=== PATIENT | female | born 1965 | race Caucasian/White ===

== ENCOUNTER 2021-06-29 08:54 | Outpatient (CLI) | payer OTHER, SELFPAY ==
--- NOTE | ~2021-06-29 | XR_ITS ---
EXAMINATION: XR knee RT min 4V DATE: 06/29/2021 09:23 INDICATION: Right knee pain. TECHNIQUE: 4 views of right knee were obtained. COMPARISON: Right knee radiographs 03/19/2019 FINDINGS: There is varus angulation at the knee. There is an old displaced fracture of the medial asp ect of medial tibial plateau with nonunion. There is severe osteoarthritis of medial and patellofemor al compartments and mild osteoarthritis of lateral compartment. No knee joint effusion. IMPRESSION: 1. Severe right knee osteoarthritis. 2. 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 Reviewed, dictated and finalized at location A. IMPRESSION: 1. Severe right knee osteoarthritis. 2. Old displaced fracture of the medial aspect of medial tibial plateau with no nunion.
--- NOTE | ~2021-06-29 | XR_ITS ---
EXAMINATION: XR knee LT min 4V DATE: 06/29/2021 09:23 INDICATION: Left knee pain. TECHNIQUE: 4 views of left knee were obtained. COMPARISON: Left knee radiographs 10/18/2019 FINDINGS: There is varus angulation at the knee. No fracture. There is severe osteoarthritis of media l, lateral, and patellofemoral compartments. There are loose bodies in the knee joint and in a Baez' s cyst. No knee joint effusion. IMPRESSION: 1. Severe left knee osteoarthritis. 2. Loose bodies in the left knee joint and a Baez's cyst. Reviewed, dictated and finalized at location A.
== END 2021-06-29 08:55 | disposition home or self-care (01) ==
LOC: CHSIMG 08:57
PROVIDERS: PCP Nurse Practitioner; Visit Provider Orthopaedic Surgery
DX: M25.561 Pain in right knee (principal); M25.562 Pain in left knee; M17.0 Bilateral primary osteoarthritis of knee
CPT/HCPCS: 73564

== ENCOUNTER 2021-10-06 08:11 | Outpatient (CLI) | payer OTHER, SELFPAY ==
[2021-10-06 12:11] LABS: Add Urine Microscopic? YES; Appearance Urine Clear (Clear); Bilirubin Urine Negative (Negative); Blood Urine Negative (Negative); Color Urine Yellow (Yellow); Glucose Urine UA Negative (Negative); Ketones Urine Negative (Negative); Leukocyte Esterase Ur Negative LEU/UL (Negative); Mucus Urine Rare /lpf; Nitrate Urine Negative (Negative); Protein Urine Negative (Negative); RBC Urine 0-2 /hpf (0-2); Specific Grav Ur 1.012 (1.001-1.035); Squamous Epithelial Cell Urine Rare /hpf (Few); Urobilinogen Urine Negative mg/dL (<2.0); WBC Urine 0-3 /hpf
[2021-10-06 12:17] LABS: Partial Thromboplastin Time 28.4 SECONDS (22.3-36.8); Prothrombin Time 13.5 Seconds (11.1-14.7)
[2021-10-06 12:22] LABS: Urine Cotinine NEGATIVE
== END 2021-10-06 08:12 | disposition home or self-care (01) ==
PROVIDERS: PCP Nurse Practitioner; Visit Provider Orthopaedic Surgery
DX: Z01.812 Encounter for preprocedural laboratory examination (principal); M17.12 Unilateral primary osteoarthritis, left knee; Z51.81 Encounter for therapeutic drug level monitoring; Z79.899 Other long term (current) drug therapy
CPT/HCPCS: 80307; 81001; 85610; 85730; 86850; 86900; 86901

== ENCOUNTER 2021-10-12 00:23 | Day surgery (SDC) | payer OTHER, SELFPAY ==
[2021-10-06 10:22] VITALS: BMI 39.9
[2021-10-06 10:39] VITALS: BP 152/76; PULSE 52; RESP 16; TEMP 36.7; O2SAT 99
--- NOTE | 2021-10-06 10:49 | PC.NURSE ---
Report to the Outpatient Waiting Room, entrance under the green pavilion located off [facility], at time __9:00AM____ on date ___10/12/21____. OR Time: ___11:00AM . - You will be asked a series of questions to screen for COVID 19 for your protection. - A mask is required within the hospital. - No visitors are allowed at this time. Preoperative COVID Testing Requirements: No COVID Test needed if: (proof is required; if not received patient will have Rapid Test prior to entry) - Patient has received COVID Vaccine at least 14 days prior to procedure date or - Patient has positive COVID test result within last 90 days of surgery date. COVID Test needed if above criteria is not met If not COVID vaccinated a COVID test must be conducted within 72 hours of surgery and patient is asked to isolate self from time of testing until procedure. You will go to the [email or web address] Testing Site for your COVID testing. The [email or web address] site is located at the corner of [address] [facility]. You will only be called if COVID results are positive and your surgeon may reschedule your elective surgery date. Patients may have clear liquids (water, carbonated beverages, clear teas, apple juice) until 3 hours prior to surgery with a maximum of 20 ounces. - No food from midnight until time of surgery - Infants may have breast milk until 4 hours before surgery, formula 6 hours prior to surgery. - Children will be allowed to drink immediately following surgery. If applicable, please bring a bottle or sippy cup to assist with drinking. Juice, water, soda, and popsicles are readily available. For infants on formula, please bring formula the day of surgery. Pacifiers are allowed. Take the following medications with a SIP of water the morning of surgery: ____AMLODIPINE, FLUOXETINE Medications to discontinue per physician ALL VITAMINS/SUPPLEMENTS 3 DAYS PRE-OP Date to take last dose 2/4/22 Please no make-up, nail malay, hairspray, perfume, deodorant, or body powder the day of surgery. No jewelry (including any body piercings) or valuables the day of surgery, leave them at home. Please take a shower or bath the night before, or the morning of, surgery with an antibacterial soap. Wear comfortable, loose fitting clothing. Children are encouraged to wear pajamas. - Jewelry must be removed prior to entering the operating room. Rings and piercings that are not removed may be cut off. - The hospital will not accept responsibility for valuables. - Please leave all valuables, including medications, at home the day of surgery. If you are going home after surgery, a licensed entry level truck driver must drive you home. - NO public transportation without another adult. - We recommend that an adult stay with you for 24 hours following discharge. - We also recommend that you do not drive, make important decision, drink alcoholic beverages, or take any drugs that were not prescribed by your health care provider for at least 24 hours after your discharge time. For Pediatric surgeries, we recommend two adults accompany the child home (only one inside the building at this time). Follow any additional instructions given to you from your surgeon. Telephone instructions given to __PATIENT and asked if any additional questions and then verbalized understanding. Patient advised to call surgeon office or pre surgery nurse liaison [phone] if any additional questions.
[2021-10-12] VITALS (8 sets, daily range): BP systolic 133–159; BP diastolic 54–98; PULSE 55–76; RESP 10–20; TEMP 36.3–36.4; O2SAT 96–100
--- NOTE | ~2021-10-12 | XR_ITS ---
XR knee LT 2V DATE: 10/12/2021 13:54 INDICATION: Postoperative examination TECHNIQUE: Portable AP and crosstable lateral views of left knee COMPARISON: 06/29/2021 left knee FINDINGS: There are jarrett along the anterior aspect of the knee. There is expected postoperative morgan bcutaneous emphysema. Status post left knee arthroplasty without patellar resurfacing. No fracture or dislocation, periosteal reaction or bone destruction. IMPRESSION: Left knee arthroplasty Reviewed, dictated and finalized at location A. CELL SEALER IMPRESSION: Left knee arthroplasty
--- NOTE | 2021-10-12 07:22 | WPDHPUPDATE1 ---
History and Physical Update Update Date/Time: 10/12/21 07:22 History and Physical has been reviewed, including an updated exam of the patient. There are NO changes in the patient's condition. Risks, benefits, and alternatives have been discussed and questions answered. Patient agrees to proceed with procedure.
--- NOTE | 2021-10-12 08:37 | WPDANESEPPF ---
Anes - Initial Pre Proc Eval Procedure: Operation Date: 10/12/21 11:00 Proposed Procedures p Left Total Knee Arthroplasty - Michael Lindsey MD Date/Time: 10/12/21 08:37 Surgeon: Michael Lindsey MD Pre Op Diagnosis: left knee djd Patient Data Age: 56 Gender: F Height: 1.56 m Weight: 97.3 kg Last Vital Signs Temp 36.7 C 10/06/21 10:39 Pulse 52 L 10/06/21 10:39 Resp 16 10/06/21 10:39 BP 152/76 H 10/06/21 10:39 Pulse Ox 99 10/06/21 10:39 Allergies Allergy/AdvReac Type Severity Reaction Status Date / Time aspirin AdvReac Unknown Other Verified 10/06/21 10:28 NSAIDS (Non-Steroidal AdvReac Unknown Other Verified 10/06/21 10:28 Anti-Inflamma Home Medications Medication Instructions Recorded Confirmed Type amlodipine 5 mg PO QAM 10/06/21 10/12/21 History atorvastatin 20 mg PO QAM 10/06/21 10/12/21 History calcium citrate 500 mg PO TID 10/06/21 10/12/21 History cyanocobalamin (vitamin B-12) 1,000 mcg PO WEEKLY 10/06/21 10/12/21 History ferrous [id number]-pocwezz conc 1 cap PO 5XW 10/06/21 10/12/21 History [Iron Complex/C/B12] fluoxetine 60 mg PO QAM 10/06/21 10/12/21 History furosemide 20 mg PO QAM 10/06/21 10/12/21 History lisinopril 10 mg PO QAM 10/06/21 10/12/21 History multivitamin [Multiple Vitamin] 1 tablet PO QID 10/06/21 10/12/21 History omeprazole [Prilosec] 20 mg PO QAM 10/06/21 10/12/21 History Patient hx anesthesia problems: post op nausea/vomiting Family hx anesthesia problems: none Results Review: All pre-operative results and documents have been reviewed as part of the pre-operative evaluation. [facility] Past Medical History Medical History (Updated 10/12/21 @ 08:38 by Eleazar Lozano DO) Anxiety Bilateral knee pain BMI greater than 40 DJD (degenerative joint disease) of knee Hiatal hernia Hyperlipidemia Hypertension Left knee DJD JAZMINE (obstructive sleep apnea) PONV (postoperative nausea and vomiting) Pre-op testing Right knee DJD Surgical History Surgical History (Updated 10/12/21 @ 08:38 by Eleazar Lozano DO) Gastric bypass status for obesity 01/2021 History of hysterectomy Family History Family History Other Family history of malignant neoplasm Social History Social History Smoking status: Never smoker Alcohol intake: former Alcohol use details: STOPPED DRINKING 35 YEARS AGO Substance use: never Living arrangements: with family Additional living arrangements comments: [place] Gender identity (if verbalized by the patient): Female Spiritual care concerns: No Anes - Eval Final PreProcedure Day of Procedure 10/12/21 08:37 Patient weight: obese Heart: regular rate and rhythm Lungs: clear to auscultation and normal air movement Airway: Mallampati scale class II Neurological: alert and oriented Last oral intake: >/= 8 hours ASA classification: III Emergent: no Anesthetic plan: proceed Anesthesia type and monitoring: general LMA and standard monitoring Results Review: All pre-operative results and documents have been reviewed as part of the pre-operative evaluation. Informed Consent: The patient's anesthetic plan and its attendant risks and benefits were discussed with the patient/family/POA. Questions were solicited and answers provided to the satisfaction of the patient/family/POA.
--- NOTE | 2021-10-12 08:41 | WPDANESPNB ---
Anes - Peripheral Nerve Block Date/Time: 10/12/21 08:41 I have discussed with the patient/family/POA the placement of a peripheral nerve block for post-operative pain management, including associated risks, benefits, complications, and side effects. Alternative methods of post-operative analgesia were detailed. Questions were solicited and answers provided to the satisfaction of the patient/family/POA. Time-Out: A pre-procedural Time-Out was completed immediately before starting the procedure and confirmed: Patient Identification, Site, Procedure, Patient Position and the Availability of Requisite Equipment. Clinical Indications: Acute post-operative pain management requested by the operative surgeon. Nerve Block Insertion Note Anes-nerve block: adductor canal left Patient position: supine Skin prep: chlorhexidine Needle: 22 gauge, stimulating, insulated echogenic needle. Needle length: 80 mm Technique: ultrasound Injectate: bupivacaine 0.5% with epi 5 mcg/ml (30cc - no epi) Observations: tolerated well Complications: none Procedure start time:: 1037 Procedure end time:: 1040
[2021-10-12] MEDS: ACETAMINOPHEN 500 MG TABLET 1000 MG PO (09:10)
[2021-10-12] MEDS: LACTATED RINGERS 1,000 ML 30 ML IV CONT ×3 (09:10→14:14)
[2021-10-12] MEDS: TRANEXAMIC ACID 1,000MG/ISO100 1,000 MG/100 ML BAG 200 MG IVPB (09:10)
[2021-10-12] MEDS: SCOPOLAMINE 1.5 MG PATCH TRANSDERM (09:36)
[2021-10-12] MEDS: ceFAZolin 2 GM/D5W 50 ML 2 GM/50 ML BAG IVPB ×2 (10:47→17:39)
[2021-10-12] MEDS: GENTAMICIN BONE CEMENT REFOBACIN 1 EACH TOPICAL (11:37)
[2021-10-12] MEDS: TRANEXAMIC ACID 1,000 MG/10 ML AMPUL 1000 MG IV PUSH (12:57)
[2021-10-12] MEDS: fentaNYL CITRATE INJ (*CRX) 100 MCG/2 ML VIAL 25 MCG IV PUSH ×4 (13:50→14:00)
--- NOTE | 2021-10-12 14:10 | W.PM.PROC2 ---
Procedure Note - Detailed Date of Procedure 10/12/21 Pre-op Diagnosis left knee djd Post-op Diagnosis same Procedure Performed L TKA Surgeon Michael Lindsey MD Anesthesia general Description of Procedure THE LEFT KNEE WAS PREPPED AND DRAPED IN THE STERILE FASHION. THERE WAS A 20 DEGREE FLEXION CONTRACTURE. A MIDLINE SKIN INCISION WAS MADE. A MEDIAL PARAPATELLAR ARTHROTOMY WAS MADE. THE PATELLA WAS EVERTED. THERE WAS TRICOMPARTMENT DJD. THERE WAS MINIMAL PATELLA DJD. AN INTRAMEDULLARY RACHEL WAS PLACED IN THE FEMUR. A DISTAL FEMORAL CUT WAS MADE IN 5 DEGREES OF VALGUS REMOVING APPROXIMATELY 9 MM OF BONE FROM THE DISTAL FEMUR. THE FEMUR WAS SIZED TO 62.5. A 62.5 FEMORAL CUTTING BLOCK WAS PLACED IN 3 DEGREES OF EXTERNAL ROTATION AND IN ALIGNMENT WITH JOY'S LINE AND THE TRANSEPICONDYLAR AXIS. ANTERIOR POSTERIOR AND CHAMFER CUTS WERE MADE. THE CUTS WERE EXCELLENT. NEXT AN INTRAMEDULLARY CUTTING GUIDE WAS PLACED IN THE TIBIA. A TRANS TIBIAL CUT WAS MADE ALONG THE LONG AXIS OF THE TIBIA. APPROXIMATELY 10 MM OF BONE WAS REMOVED FROM THE HIGH SIDE OF THE TIBIA. THE TIBIA WAS THEN PLANED TO A SMOOTH SURFACE. POSTERIOR FEMORAL OSTEOPHYTES WERE REMOVED FROM THE FEMORAL CONDYLES. A 71 TIBIAL TRIAL WAS PLACED IN ALIGNMENT WITH THE 1/3 MEDIAL ASPECT OF THE TIBIAL TUBERCLE. THEN A 65 FEMORAL TRIAL COMPONENT WAS PLACED. BOTH HAD EXCELLENT FITS. EVENTUALLY A 16 MM POLYETHYLENE TRIAL COMPONENT WAS PLACED. THE KNEE WAS TAKEN THROUGH A RANGE OF MOTION. THE KNEE CAME OUT TO FULL EXTENSION. THERE WAS NO ABNORMAL TILT TO THE PATELLA. THERE WAS GOOD A/P AND VARUS/VALGUS STABILITY. THERE WAS NO EXCESSIVE ROLL BACK WITH FLEXION. THE TRIAL COMPONENTS WERE REMOVED. THEN A 62.5 FEMORAL COMPONENT AND 71 TIBIAL COMPONENT WITH A 16 POLYETHYLENE COMPONENT WERE CEMENTED INTO PLACE. ONCE THE CEMENT WAS HARD THE KNEE WAS TAKEN THROUGH A ROM AGAIN AND FOUND TO BE STABLE WITH NO PATELLA TILT NO EXCESSIVE ROLL BACK WITH FLEXION AND GOOD STABILITY WITH COMPLETE AND FULL EXTENSION. THE KNEE WAS IRRIGATED WITH STERILE BETADINE AND WATER FOR ABOUT 3 MINUTES. THE BLEEDERS WERE CAUTERIZED. THE ARTHROTOMY WAS REPAIRED WITH NUMBER 1 VICRYL. THE SUB CUTANEOUS LAYER WITH 2-0 VICRYL AND THE SKIN WITH SACHA. THE WOUND WAS WASHED AND A STERILE DRESSING WAS APPLIED. PATIENT WAS EXTUBATED. Estimated Blood Loss -200.0 Pathology none sent Complications No immediate complications Condition stable Disposition PACU
[2021-10-12] MEDS: ONDANSETRON INJ 4 MG/2 ML VIAL IV PUSH (14:25)
[2021-10-12] MEDS: HYDROmorphone HCL INJ (*CRX) 1 MG/ML SYR 0.25 MG IV PUSH ×3 (14:30→14:50)
--- NOTE | 2021-10-12 14:47 | SUR.PHASEI ---
RESTFUL. FLACC 0. RATES PAIN AT 7 CONSISTENTLY WHEN AWAKE BUT EASILY RETURNS TO SLEEP AND DOZES FREQ. VSS.
--- NOTE | 2021-10-12 16:27 | PC.NURSE ---
This patient, Alexandrea Wolfe, was admitted to [facility] Surgery-3. Patient oriented to hospital policies and general routines including ID bracelet, bed and alarms, visiting hours, pain management, procedures, bathroom and other care routines, personal items, smoking policy, room service/diet, and visiting hours. Information on how to activate the Rapid Response Team has been discussed. Patient are encouraged to report perceived risks to care and to ask questions if they do not understand what they are told or what they should do.
[2021-10-12] MEDS: SODIUM CHLORIDE 0.9% IV 1,000 ML 125 ML IV CONT (16:45)
[2021-10-12] MEDS: oxyCODONE/ACETAMINOPHEN (*CRX) 5-325 MG TABLET 1 TABLET PO (17:27)
[2021-10-12] MEDS: MULTIVITAMINS THERAPEUTIC TAB (*BKC) 1 TABLET PO ×2 (17:28→21:21)
[2021-10-12] MEDS: SENNA/DOCUSATE SODIUM TABLET 2 TAB PO (17:28)
--- NOTE | 2021-10-12 19:12 | PC.NURSE ---
REPORT GIVEN TO STEPHANIE MEDINA.
[2021-10-12] MEDS: CYANOCOBALAMIN 1,000 MCG TABLET 1000 MCG PO (21:21)
[2021-10-12] MEDS: oxyCODONE/ACETAMINOPHEN (*CRX) 5-325 MG TABLET 2 TABLET PO (23:08)
[2021-10-13] VITALS (7 sets, daily range): BP systolic 121–168; BP diastolic 60–94; PULSE 62–88; RESP 16–20; TEMP 37.1–37.5; O2SAT 95–99
[2021-10-13] MEDS: ceFAZolin 2 GM/D5W 50 ML 2 GM/50 ML BAG IVPB ×2 (02:22→09:57)
[2021-10-13 04:39] LABS: Basophils Percent Auto 0.2 % (0.2-1.2); Hematocrit 33.8 % (37.0-47.0); Hemoglobin 10.9 g/dL (12.0-15.0); Immature Granulocyte Absolute 0.03 K/mm3 (0.00-0.031); Immature Granulocyte Percent A 0.3 % (0-0.5); Lymphocytes Absolute Auto 1.17 K/mm3 (0.9-3.2); Lymphocytes Percent Auto 12.8 % (18.3-44.2); Mean Corpuscular HGB Conc 32.2 g/dl (32-36); Mean Corpuscular Hemoglobin 29.6 pg (26-34); Mean Corpuscular Volume 91.8 fl (80-100); Mean Platelet Volume 10.7 fl (7.4-10.4); Monocytes Percent Auto 11.3 % (2.6-8.5); Neutrophils Absolute Auto 6.9 K/mm3 (1.3-6.7); Neutrophils Percent Auto 75.4 % (45.5-73.1); Platelet Count Result 184 k/mm3 (150-375); Red Blood Count 3.68 M/mm3 (4.2-5.4); Red Cell Distribution Width 14.3 % (11.5-14.5); White Blood Count 9.1 K/mm3 (4.5-10.0)
[2021-10-13 04:49] LABS: Anion Gap 8 mmol/L (8-16); Blood Urea Nitrogen 9 mg/dL (7-17); Calcium 9.3 mg/dL (8.4-10.2); Carbon Dioxide 26 mmol/L (22-30); Chloride 103 mmol/L (98-107); Estimated CRCL calculation 95 ml/min; Estimated Glomerular Filt Rate > 60; Glucose 143 mg/dL (65-110); Potassium 4.4 mmol/L (3.4-5.0); Sodium 137 mmol/L (137-145)
[2021-10-13] MEDS: oxyCODONE/ACETAMINOPHEN (*CRX) 5-325 MG TABLET 2 TABLET PO (05:36)
--- NOTE | 2021-10-13 08:02 | PM.PNORT ---
Progress Note: A&P Additional Plan POD 1 DOING WELL. OK TO DC HOME. F/U IN 3 WEEKS Subjective Subjective Date/Time Seen: 10/13/21 08:02 POD 1 DOING WELL. PAIN CONTROLLED, NO CALF PAIN Exam Extrem: Other: VSS AFEBRILE DRESSING DRY NV INTACT NEG HOMANS SIGN CALF SOFT Objective Data Vital Signs Vital Signs: Vital Signs - 24 hr 10/12/21 08:48 10/12/21 13:44 10/12/21 14:00 Temperature 36.3 C L 36.4 C Pulse Rate 55 L 73 70 Respiratory Rate 18 13 16 Blood Pressure 145/76 H 159/98 H 147/61 H Pulse Oximetry 100 100 100 10/12/21 14:15 10/12/21 14:30 10/12/21 14:46 Temperature Pulse Rate 68 67 63 Respiratory Rate 14 10 L 12 Blood Pressure 133/54 L 145/66 H 137/59 L Pulse Oximetry 97 96 99 10/12/21 15:00 10/12/21 20:00 10/13/21 00:05 Temperature Pulse Rate 70 76 88 Respiratory Rate 20 20 20 Blood Pressure 140/68 153/70 H 152/70 H Pulse Oximetry 97 98 10/13/21 00:50 10/13/21 02:00 10/13/21 04:00 Temperature 37.2 C 37.5 C Pulse Rate 62 66 Respiratory Rate 20 20 18 Blood Pressure 168/94 H 121/60 Pulse Oximetry 98 99 10/13/21 05:39 10/13/21 06:43 Temperature 37.5 C Pulse Rate 66 Respiratory Rate 18 20 Blood Pressure 121/60 Pulse Oximetry 99 Intake/Output Intake/Output: Intake & Output 10/10/21 10/11/21 10/12/21 10/13/21 23:59 23:59 23:59 23:59 Intake Total 1150 50 Balance 1150 50 Meds/Results Medications: Active Medications Generic Name Dose Route Start Last Admin Trade Name Freq PRN Reason Stop Dose Admin Acetaminophen 1,000 mg 10/12/21 15:14 Acetaminophen 500 Mg Tablet PO Q6H PRN Pain Rated 1-3 Amlodipine Besylate 5 mg 10/13/21 09:00 Amlodipine Besylate 5 Mg Tablet PO [facility] Atorvastatin Calcium 20 mg 10/13/21 09:00 Atorvastatin 20 Mg Tablet PO [facility] Calcium Carbonate 500 mg 10/12/21 17:00 10/12/21 17:40 Calcium Carbonate (Oscal) 500 Mg Tablet PO 11/11/21 16:59 Not Given TID ON LICENSE OF [facility] Cyanocobalamin 1,000 mcg 10/12/21 09:00 10/12/21 21:21 Cyanocobalamin 1,000 Mcg Tablet PO 1,000 mcg WEEKLY ON LICENSE OF [facility] Administration Diazepam 5 mg 10/12/21 15:14 Diazepam (*Crx) 5 Mg Tablet PO Q8H PRN Spasms Diphenhydramine HCl 25 mg 10/12/21 15:14 Diphenhydramine Hcl Inj 50 Mg/Ml Vial IV PUSH Q6H PRN Itching Fluoxetine HCl 60 mg 10/13/21 09:00 Fluoxetine Hcl 20 Mg Capsule PO QAM ON LICENSE OF [facility] Furosemide 20 mg 10/13/21 09:00 [facility]semide 20 Mg [facility] [place] [place] Cefazolin Sodium 2 gm in 50 mls @ 100 mls/hr 10/12/21 18:00 10/13/21 02:52 Ancef 2 Gm/D5w 50 Ml IVPB 10/13/21 10:29 Infused Q8H ON LICENSE OF [facility] Infusion Lisinopril 10 mg 10/13/21 09:00 Lisinopril 10 Mg Tablet PO QAM ON LICENSE OF [facility] Magnesium Hydroxide 30 ml 10/12/21 15:14 Magnesium Hydroxide Susp 30 Ml Udc PO BID PRN Constipation Multivitamins Therapeutic 1 tablet 10/12/21 17:00 10/12/21 21:21 Multivitamins Therapeutic Tab (*Bkc) PO 1 tablet QID ON LICENSE OF [facility] Administration Naloxone HCl 0.1 mg 10/12/21 15:14 Naloxone Hcl 0.4 Mg/Ml Vial IV PUSH Q2M PRN Opiate Reversal Ondansetron HCl 4 mg 10/12/21 15:14 Ondansetron Inj 4 Mg/2 Ml Vial IV PUSH Q4H PRN Nausea And Vomiting Oxycodone/Acetaminophen 1 tablet 10/12/21 15:14 10/12/21 17:27 Oxycodone/Acetaminophen (*Crx) 5-325 Mg Tablet PO 1 tablet Q4H PRN Administration Pain Rated 4-6 Oxycodone/Acetaminophen 2 tablet 10/12/21 15:14 10/13/21 05:36 Oxycodone/Acetaminophen (*Crx) 5-325 Mg Tablet PO 2 tablet Q6H PRN Administration Pain Rated 7-10 Pantoprazole Sodium 40 mg 10/13/21 09:00 Pantoprazole 40 Mg Tablet PO QAM ON LICENSE OF [facility] Polyethylene Glycol 17 gm 10/13/21 09:00 Polyethylene Glycol 3350 17 Gm Powd.Pack PO QAM ON LICENSE OF [facility] Rivaroxaban 10 mg 10/13/21 17:00 Rivaroxaban 10 Mg Tablet PO 10/24/21 17:01 DAILY@17 ON LICENSE OF [facility] Senna/Docusate Sodium 2 tab 10/12/21 17:00 10/12/21 1
--- NOTE | 2021-10-13 08:05 | PM.DS ---
DS: Admitting Diagnosis Discharge Date 10/13/21 Admitting Diagnosis LEFT KNEE DJD DS: Discharge Diagnosis Discharge Diagnosis (1) Left knee DJD: Qualifiers: Osteoarthritis type: primary Qualified Code(s): M17.12 - Unilateral primary osteoarthritis, left knee Code(s): M17.12 - Unilateral primary osteoarthritis, left knee Status: Acute DS: Summary Hospital Course Reason for hospitalization: LEFT TKA Hospital Course: PATIENT WAS ADMITTED S/P TOTAL KNEE ARTHROPLASTY FOR POSTOPERATIVE MEDICAL MANAGEMENT, PAIN CONTROL AND MOBILIZATION WITH PHYSICAL AND OCCUPATIONAL THERAPY. THE PATIENT PROGRESSED WELL WITH PT/OT. LABS AND VITALS REMAINED STABLE AND PAIN WELL CONTROLLED. THE PATIENT HAS BEEN CLEARED TO BE DISCHARGED HOME. FOLLOW UP APPOINTMENT SCHEDULED. DISCHARGE INSTRUCTIONS DISCUSSED AT LENGTH WITH THE PATIENT. MEDICATIONS REVIEWED. Time spent discussing smoking cessation with patient: 3 to 10 minutes Status at Discharge Functional status at discharge: uses cane/walker Overall status at discharge: patient is not back to baseline Time Spent with Patient Time attestation: Total time spent providing and/or coordinating discharge services: Time spent: Less than 30 minutes DS: Data Data Completed and Pending Labs on day of discharge: Labs from last 24 hours 10/13/21 10/13/21 04:31 04:31 WBC 9.1 RBC 3.68 L Hgb 10.9 L Hct 33.8 L MCV 91.8 MCH 29.6 MCHC 32.2 RDW 14.3 Plt Count 184 MPV 10.7 H Immature Gran % (Auto) 0.3 Neut % (Auto) 75.4 H Lymph % (Auto) 12.8 L [place] % (Auto) 11.3 H Eos % (Auto) 0.0 Baso % (Auto) 0.2 Lymph # (Auto) 1.17 [place] # (Auto) 1.0 H Eos # (Auto) 0.0 Baso # (Auto) 0.0 Abs Immat Gran (auto) 0.03 Absolute Neuts (auto) 6.9 H Absolute Nucleated RBC 0.0 Nucleated RBC % 0.0 Sodium 137 Potassium 4.4 Chloride 103 Carbon Dioxide 26 Anion Gap 8 BUN 9 Creatinine 0.60 L Estim Creat Clear Calc 95 Estimated GFR > 60 Glucose 143 H Calcium 9.3 Discharge Plan Discharge Patient Disposition: Home Health Service Discharge Instructions: Remove the Scopolamine patch that was placed behind your ear in 72 hours or less. Wash your hands after touching. Post Op Total Knee Replacement Instructions Dr. Michael Lindsey [phone] ? Your dressing will be changed prior to your discharge. You will be sent home with one additional dressing to be changed on post op day 7 by the home health RN. Your jarrett will be removed on the 14th day after surgery and steri-strips will be placed. Please practice good hand hygiene and do not touch your incision in order to prevent infection. ? You may shower with your dressing but do not submerge in a bath tub. ? Do not drive or operate machinery until you are released by Dr. Lindsey. ? Do not walk without a walker for any reason until you are released by Dr. Lindsey. ? Continue to use your ice machine. Please use a towel or pillow case to protect your skin before applying your ice machine. ? Do NOT place a pillow under your knee. You may use a pillow from the calf down if needed. This will prevent a flexion contracture postoperatively. ? You may begin use of your CPM machine at home if you have been given one pre-operatively. DO NOT USE WHILE YOU ARE SLEEPING. ? Your first post op appointment was sent to you via mail preoperatively. If you have any questions or are unable to make your appointment, please contact our office for scheduling questions. ? Your medications have been sent to your pharmacy. You have been sent home with pain medication. We have also sent you with a stool softener as narcotics can cause constipation. Please keep this in mind during your postoperative recovery. If you are not experiencing regular bowel movements, please contact our office for further instruction. ? Please contact our office with any questions/concerns regarding your knee at [phone]. Patient Instruc
--- NOTE | 2021-10-13 08:16 | WPDANESPN ---
Anes - Prog Note Post-Op Date/Time: 10/13/21 08:16 Cardiovascular status: normal Respiratory status: normal Airway patency: baseline Mental status: baseline Vital Signs: Last Vital Signs Temp 37.5 C 10/13/21 05:39 Pulse 66 10/13/21 05:39 Resp 20 10/13/21 06:43 BP 121/60 10/13/21 05:39 Pulse Ox 99 10/13/21 05:39 Pain Score (VAS): 2/10 I/O: Intake & Output 10/12/21 10/13/21 10/13/21 23:59 07:59 15:59 Intake Total 50 50 Balance 50 50 Laboratory Tests 10/13/21 04:31 10/13/21 04:31 10/13/21 10/13/21 04:31 04:31 WBC 9.1 RBC 3.68 L Hgb 10.9 L Hct 33.8 L MCV 91.8 MCH 29.6 MCHC 32.2 RDW 14.3 Plt Count 184 MPV 10.7 H Immature Gran % (Auto) 0.3 Neut % (Auto) 75.4 H Lymph % (Auto) 12.8 L [place] % (Auto) 11.3 H Eos % (Auto) 0.0 Baso % (Auto) 0.2 Lymph # (Auto) 1.17 [place] # (Auto) 1.0 H Eos # (Auto) 0.0 Baso # (Auto) 0.0 Abs Immat Gran (auto) 0.03 Absolute Neuts (auto) 6.9 H Absolute Nucleated RBC 0.0 Nucleated RBC % 0.0 Sodium 137 Potassium 4.4 Chloride 103 Carbon Dioxide 26 Anion Gap 8 BUN 9 Creatinine 0.60 L Estim Creat Clear Calc 95 Estimated GFR > 60 Glucose 143 H Calcium 9.3 Post-procedural complaints: none Patient Feedback: Patient satisfied with anesthetic care.
[2021-10-13] MEDS: amLODIPine BESYLATE 5 MG TABLET PO (09:55)
[2021-10-13] MEDS: lisinopriL 10 MG TABLET PO (09:56)
[2021-10-13] MEDS: SENNA/DOCUSATE SODIUM TABLET 2 TAB PO (09:56)
[2021-10-13] MEDS: polyethylene glycoL 3350 17 GM POWD.PACK PO (09:58)
[2021-10-13] MEDS: PANTOPRAZOLE 40 MG TABLET PO (09:58)
[2021-10-13] MEDS: MULTIVITAMINS THERAPEUTIC TAB (*BKC) 1 TABLET PO (09:59)
[2021-10-13] MEDS: CALCIUM CARBONATE (OSCAL) 500 MG TABLET PO (10:07)
[2021-10-13] MEDS: ATORVASTATIN 20 MG TABLET PO (10:24)
[2021-10-13] MEDS: FLUoxetine HCL 20 MG CAPSULE 60 MG PO (10:24)
[2021-10-13] MEDS: FUROSEMIDE 20 MG TABLET PO (10:25)
[2021-10-13] MEDS: oxyCODONE/ACETAMINOPHEN (*CRX) 5-325 MG TABLET 1 TABLET PO (11:55)
[2021-10-13] MEDS: ASPIRIN 325 MG ENTERIC TABLET 650 MG PO (11:57)
== END 2021-10-13 13:10 | disposition home health service (06) ==
LOC: ANHSURGERY 09:35 → ANHSUROVER 15:30
PROVIDERS: PCP Nurse Practitioner; Visit Provider Orthopaedic Surgery
PROC: (CPT 27447; principal; 2021-10-12 11:00)
DX: M17.12 Unilateral primary osteoarthritis, left knee (principal); G89.18 Other acute postprocedural pain; I10 Essential (primary) hypertension; E78.5 Hyperlipidemia, unspecified; G47.33 Obstructive sleep apnea (adult) (pediatric); F41.9 Anxiety disorder, unspecified; Z98.84 Bariatric surgery status; E66.9 Obesity, unspecified; Z68.39 Body mass index [BMI] 39.0-39.9, adult
CPT/HCPCS: 27447; 64447; 36415; 73560; 80048; 85025; 97110; 97116; 97161; 97165; A9270; C1713; C1776; J0171; J0690; J1100; J1170; J1200; J2250; J2270; J2405; J2704; J2795; J3010; J7030; J7120

== ENCOUNTER 2021-12-08 09:37 | Outpatient (CLI) | payer OTHER, SELFPAY ==
[2021-12-08 10:28] LABS: Add Urine Microscopic? YES; Appearance Urine Clear (Clear); Bilirubin Urine Negative (Negative); Blood Urine Negative (Negative); Color Urine Yellow (Yellow); Glucose Urine UA Negative (Negative); Ketones Urine Negative (Negative); Leukocyte Esterase Ur Negative LEU/UL (Negative); Mucus Urine Rare /lpf; Nitrate Urine Negative (Negative); Protein Urine Negative (Negative); RBC Urine 0-2 /hpf (0-2); Specific Grav Ur 1.018 (1.001-1.035); Urobilinogen Urine Negative mg/dL (<2.0); WBC Urine 0-3 /hpf
[2021-12-08 10:37] LABS: INR 1.1; Prothrombin Time 14.1 Seconds (11.1-14.7)
[2021-12-08 10:38] LABS: Partial Thromboplastin Time 29.2 SECONDS (22.3-36.8)
[2021-12-08 10:38] LABS: Urine Cotinine NEGATIVE
== END 2021-12-08 09:38 | disposition home or self-care (01) ==
LOC: ANHSURGERY 09:40
PROVIDERS: PCP Nurse Practitioner; Visit Provider Orthopaedic Surgery
DX: M17.11 Unilateral primary osteoarthritis, right knee (principal); Z01.818 Encounter for other preprocedural examination
CPT/HCPCS: 80307; 81001; 85610; 85730; 86850; 86900; 86901

== ENCOUNTER 2021-12-16 14:39 | Observation (INO) | payer OTHER, SELFPAY ==
[2021-12-01 11:02] VITALS: BMI 37.5
--- NOTE | 2021-12-01 11:19 | PC.NURSE ---
Report to the Outpatient Waiting Room, entrance under the green pavilion located off [facility], at time __6:00AM on date __12/15/21 . OR Time: ___7:30AM . - You and your visitor will be asked a series of questions to screen for COVID 19 for your protection. - A mask is required within the hospital. Preoperative COVID Testing Requirements: No COVID Test needed if: (proof is required; if not received patient will have Rapid Test prior to entry) - Patient has received COVID Vaccine at least 14 days prior to procedure date or - Patient has positive COVID test result within last 90 days of surgery date. COVID Test needed if above criteria is not met If not COVID vaccinated a COVID test must be conducted within 72 hours of surgery and patient is asked to isolate self from time of testing until procedure. You will go to the [facility] for your COVID testing. The [facility] is located at the corner of [address] [facility]. You will only be called if COVID results are positive and your surgeon may reschedule your elective surgery date. Patients may have clear liquids (water, carbonated beverages, clear teas, apple juice) until 3 hours prior to surgery with a maximum of 20 ounces. - No food from midnight until time of surgery - Infants may have breast milk until 4 hours before surgery, formula 6 hours prior to surgery. - Children will be allowed to drink immediately following surgery. If applicable, please bring a bottle or sippy cup to assist with drinking. Juice, water, soda, and popsicles are readily available. For infants on formula, please bring formula the day of surgery. Pacifiers are allowed. Take the following medications with a SIP of water the morning of surgery: ___AMLODIPINE, FLUOXETINE Medications to discontinue per physician ALL VITAMINS/SUPPLEMENTS 3 DAYS PRE-OP Date to take last dose___12/11/21 Please no make-up, nail setswana, hairspray, perfume, deodorant, or body powder the day of surgery. No jewelry (including any body piercings) or valuables the day of surgery, leave them at home. Please take a shower or bath the night before, or the morning of, surgery with an antibacterial soap. Wear comfortable, loose fitting clothing. Children are encouraged to wear pajamas. - Jewelry must be removed prior to entering the operating room. Rings and piercings that are not removed may be cut off. - The hospital will not accept responsibility for valuables. - Please leave all valuables, including medications, at home the day of surgery. If you are going home after surgery, a licensed refrigerated company driver must drive you home. - NO public transportation without another adult. - We recommend that an adult stay with you for 24 hours following discharge. - We also recommend that you do not drive, make important decision, drink alcoholic beverages, or take any drugs that were not prescribed by your health care provider for at least 24 hours after your discharge time. For Pediatric surgeries, we recommend two adults accompany the child home (only one inside the building at this time). One visitor will be allowed to accompany the patient into the hospital. Patients visitor will be instructed to remain with patient at all times or leave the building. We will allow the visitor to come back to the postoperative area when patient is ready. Follow any additional instructions given to you from your surgeon. Telephone instructions given to __PATIENT and asked if any additional questions and then verbalized understanding. Patient advised to call surgeon office or pre surgery nurse liaison [phone] if any additional questions.
[2021-12-15] VITALS (15 sets, daily range): BP systolic 101–143; BP diastolic 61–92; PULSE 49–87; RESP 10–20; TEMP 36.1–36.9; O2SAT 95–100
[2021-12-15] MEDS: ACETAMINOPHEN 500 MG TABLET 1000 MG PO (06:39)
[2021-12-15] MEDS: LACTATED RINGERS 1,000 ML 30 ML IV CONT ×2 (06:39→09:39)
[2021-12-15] MEDS: TRANEXAMIC ACID 1,000MG/ISO100 1,000 MG/100 ML BAG 200 MG IVPB (06:54)
--- NOTE | 2021-12-15 07:06 | WPDANESEPPF ---
Anes - Initial Pre Proc Eval Procedure: Operation Date: 12/15/21 07:30 Proposed Procedures p Right Total Knee Arthroplasty - Michael Lindsey MD Date/Time: 12/15/21 07:06 Surgeon: Michael Lindsey MD Pre Op Diagnosis: right knee djd Patient Data Age: 56 Gender: F Height: 1.57 m Weight: 95.55 kg Last Vital Signs Temp 36.1 C L 12/15/21 06:45 Pulse 49 L 12/15/21 06:45 Resp 16 12/15/21 06:45 BP 142/63 H 12/15/21 06:45 Pulse Ox 99 12/15/21 06:45 Allergies Allergy/AdvReac Type Severity Reaction Status Date / Time NSAIDS (Non-Steroidal AdvReac Unknown Other Verified 12/15/21 06:16 Anti-Inflamma Home Medications Medication Instructions Recorded Confirmed Type amlodipine 5 mg PO QAM 10/06/21 12/15/21 History atorvastatin 20 mg PO QAM 10/06/21 12/15/21 History calcium citrate 500 mg PO TID 10/06/21 12/15/21 History cyanocobalamin (vitamin B-12) 1,000 mcg PO WEEKLY 10/06/21 12/15/21 History ferrous [id number] conc 1 cap PO 5XW 10/06/21 12/15/21 History fluoxetine 60 mg PO QAM 10/06/21 12/15/21 History furosemide 20 mg PO QAM 10/06/21 12/15/21 History lisinopril 10 mg PO QAM 10/06/21 12/15/21 History omeprazole 20 mg PO QAM 10/06/21 12/15/21 History Patient hx anesthesia problems: post op nausea/vomiting Family hx anesthesia problems: none Results Review: All pre-operative results and documents have been reviewed as part of the pre-operative evaluation. [facility] Past Medical History Medical History Aftercare following left knee joint replacement surgery Anxiety Bilateral knee pain BMI greater than 40 DJD (degenerative joint disease) of knee Hiatal hernia Hyperlipidemia Hypertension Left knee DJD JAZMINE (obstructive sleep apnea) PONV (postoperative nausea and vomiting) Pre-op testing Right knee DJD Surgical History Surgical History Gastric bypass status for obesity 01/2021 History of hysterectomy Total knee replacement status Family History Family History Other Family history of malignant neoplasm Social History Social History Smoking status: Never smoker Alcohol intake: current Alcohol use details: STOPPED DRINKING 35 YEARS AGO Substance use: never Living arrangements: with family Additional living arrangements comments: [facility] Gender identity (if verbalized by the patient): Female Spiritual care concerns: No Anes - Eval Final PreProcedure Day of Procedure 12/15/21 07:06 Patient weight: obese Heart: regular rate and rhythm Lungs: clear to auscultation Airway: Mallampati scale class II Neurological: alert and oriented Last oral intake: >/= 8 hours ASA classification: III Emergent: no Anesthetic plan: proceed Anesthesia type and monitoring: general LMA and standard monitoring Results Review: All pre-operative results and documents have been reviewed as part of the pre-operative evaluation. Informed Consent: The patient's anesthetic plan and its attendant risks and benefits were discussed with the patient/family/POA. Questions were solicited and answers provided to the satisfaction of the patient/family/POA.
--- NOTE | 2021-12-15 07:06 | WPDHPUPDATE1 ---
History and Physical Update Update Date/Time: 12/15/21 07:06 History and Physical has been reviewed, including an updated exam of the patient. There are NO changes in the patient's condition. Risks, benefits, and alternatives have been discussed and questions answered. Patient agrees to proceed with procedure.
[2021-12-15] MEDS: SCOPOLAMINE 1.5 MG PATCH TRANSDERM (07:17)
--- NOTE | 2021-12-15 07:22 | WPDANESPNB ---
Anes - Peripheral Nerve Block Date/Time: 12/15/21 07:22 I have discussed with the patient/family/POA the placement of a peripheral nerve block for post-operative pain management, including associated risks, benefits, complications, and side effects. Alternative methods of post-operative analgesia were detailed. Questions were solicited and answers provided to the satisfaction of the patient/family/POA. Time-Out: A pre-procedural Time-Out was completed immediately before starting the procedure and confirmed: Patient Identification, Site, Procedure, Patient Position and the Availability of Requisite Equipment. Clinical Indications: Acute post-operative pain management requested by the operative surgeon. Nerve Block Insertion Note Anes-nerve block: adductor canal right Patient position: supine Skin prep: chlorhexidine Needle: 22 gauge, stimulating, insulated echogenic needle. Needle length: 80 mm Technique: ultrasound Technique comment: mid2mg [id number] Injectate: bupivacaine 0.5% with epi 5 mcg/ml (30ml no epi) and dexamethasone (mg) (4) Observations: tolerated well Complications: none Procedure start time:: 713 Procedure end time:: 718
[2021-12-15] MEDS: ceFAZolin 2 GM/D5W 50 ML 2 GM/50 ML BAG IVPB (07:28)
[2021-12-15] MEDS: TRANEXAMIC ACID 1,000 MG/10 ML AMPUL 1000 MG IV PUSH (08:54)
--- NOTE | 2021-12-15 09:41 | W.PM.PROC2 ---
Procedure Note - Detailed Date of Procedure 12/15/21 Pre-op Diagnosis right knee djd Post-op Diagnosis Same Procedure Performed R TKA Surgeon Michael Lindsey MD Anesthesia General Description of Procedure THE RIGHT KNEE WAS PREPPED AND DRAPED IN THE STERILE FASHION. THERE WAS A 10 DEGREE FLEXION CONTRACTURE. A MIDLINE SKIN INCISION WAS MADE. A MEDIAL PARAPATELLAR ARTHROTOMY WAS MADE. THE PATELLA WAS EVERTED. THERE WAS TRICOMPARTMENT DJD. THERE WAS MINIMAL PATELLA DJD. AN INTRAMEDULLARY RACHEL WAS PLACED IN THE FEMUR. A DISTAL FEMORAL CUT WAS MADE IN 5 DEGREES OF VALGUS REMOVING APPROXIMATELY 9 MM OF BONE FROM THE DISTAL FEMUR. THE FEMUR WAS SIZED TO 62.5. A 62.5 FEMORAL CUTTING BLOCK WAS PLACED IN 3 DEGREES OF EXTERNAL ROTATION AND IN ALIGNMENT WITH JOY'S LINE AND THE TRANSEPICONDYLAR AXIS. ANTERIOR POSTERIOR AND CHAMFER CUTS WERE MADE. THE CUTS WERE EXCELLENT. NEXT AN INTRAMEDULLARY CUTTING GUIDE WAS PLACED IN THE TIBIA. A TRANS TIBIAL CUT WAS MADE ALONG THE LONG AXIS OF THE TIBIA. APPROXIMATELY 10 MM OF BONE WAS REMOVED FROM THE HIGH SIDE OF THE TIBIA. THE TIBIA WAS THEN PLANED TO A SMOOTH SURFACE. POSTERIOR FEMORAL OSTEOPHYTES WERE REMOVED FROM THE FEMORAL CONDYLES. A 71 TIBIAL TRIAL WAS PLACED IN ALIGNMENT WITH THE 1/3 MEDIAL ASPECT OF THE TIBIAL TUBERCLE. THEN A 62.5 FEMORAL TRIAL COMPONENT WAS PLACED. BOTH HAD EXCELLENT FITS. EVENTUALLY A 12 POLYETHYLENE TRIAL COMPONENT WAS PLACED. THE KNEE WAS TAKEN THROUGH A RANGE OF MOTION. THE KNEE CAME OUT TO FULL EXTENSION. THERE WAS NO ABNORMAL TILT TO THE PATELLA. THERE WAS GOOD A/P AND VARUS/VALGUS STABILITY. THERE WAS NO EXCESSIVE ROLL BACK WITH FLEXION. THE TRIAL COMPONENTS WERE REMOVED. THEN A 62.5 FEMORAL COMPONENT AND 71 TIBIAL COMPONENT WITH A 12 POLYETHYLENE COMPONENT WERE CEMENTED INTO PLACE. ONCE THE CEMENT WAS HARD THE KNEE WAS TAKEN THROUGH A ROM AGAIN AND FOUND TO BE STABLE WITH NO PATELLA TILT NO EXCESSIVE ROLL BACK WITH FLEXION AND GOOD STABILITY WITH COMPLETE AND FULL EXTENSION. THE KNEE WAS IRRIGATED WITH STERILE BETADINE AND WATER FOR ABOUT 3 MINUTES. THE BLEEDERS WERE CAUTERIZED. THE ARTHROTOMY WAS REPAIRED WITH NUMBER 1 VICRYL. THE SUB CUTANEOUS LAYER WITH 2-0 VICRYL AND THE SKIN WITH SACHA. THE WOUND WAS WASHED AND A STERILE DRESSING WAS APPLIED. PATIENT WAS EXTUBATED. Estimated Blood Loss -150.0 Pathology None sent Complications No immediate complications Condition Stable Disposition PACU
[2021-12-15] MEDS: fentaNYL CITRATE INJ (*CRX) 100 MCG/2 ML VIAL 25 MCG IV PUSH ×5 (09:48→10:21)
--- NOTE | 2021-12-15 09:54 | SUR.PHASEI ---
0950 xrays of right knee done
--- NOTE | 2021-12-15 11:14 | PC.NURSE ---
This patient, Alexandrea Wolfe, was admitted to 2 Medical Room 254-01. Patient/family oriented to hospital policies and general routines including ID bracelet, bed and alarms, visiting hours, pain management, procedures, bathroom and other care routines, personal items, smoking policy, room service/diet, and visiting hours. Information on how to activate the Rapid Response Team has been discussed. Patient/Family are encouraged to report perceived risks to care and to ask questions if they do not understand what they are told or what they should do.
[2021-12-15] MEDS: oxyCODONE/ACETAMINOPHEN (*CRX) 5-325 MG TABLET 2 TABLET PO ×2 (11:45→22:10)
[2021-12-15] MEDS: SODIUM CHLORIDE 0.9% IV 1,000 ML 125 ML IV CONT (11:46)
[2021-12-15] MEDS: KETOROLAC 15 MG/ML VIAL (*BKC) IV PUSH ×3 (12:19→23:46)
[2021-12-15] MEDS: SENNA/DOCUSATE SODIUM TABLET 2 TAB PO (16:17)
--- NOTE | 2021-12-15 17:14 | PC.NURSE ---
Patient requested Keishasec, called Dr. Lindsey stated new order 40mg pantoprazole sodium, order already scheduled for tomorrow as well.
[2021-12-15] MEDS: PANTOPRAZOLE 40 MG TABLET PO (17:26)
[2021-12-16] VITALS (12 sets, daily range): BP systolic 99–126; BP diastolic 44–60; PULSE 45–70; RESP 16–20; TEMP 36.2–37.1; O2SAT 95–100
--- NOTE | ~2021-12-16 | XR_ITS ---
EXAMINATION: XR knee RT 2V EXAM DATE: 12/15/2021 10:22 INDICATION: Status post right knee arthroplasty. TECHNIQUE: Portable frontal, crosstable lateral projections right knee obtained immediately followin g arthroplasty performed by orthopedic surgeon Michael Lindsey MD. FINDINGS: Patient is status post total knee arthroplasty. The orthopedic hardware is in expected po sition. There are jarrett overlying the anterior aspect of the knee. There is small amount of subcu taneous gas, gas within the knee joint space. Overlying soft tissue swelling. Correlate with proced ure note. IMPRESSION: Status post total right knee arthroplasty. Reviewed, dictated and finalized at location B.
[2021-12-16 05:42] LABS: Basophils Percent Auto 0.2 % (0.2-1.2); Eosinophils Percent Auto 0.2 % (0-4.4); Hematocrit 31.9 % (37.0-47.0); Immature Granulocyte Absolute 0.05 K/mm3 (0.00-0.031); Immature Granulocyte Percent A 0.6 % (0-0.5); Lymphocytes Absolute Auto 1.25 K/mm3 (0.9-3.2); Lymphocytes Percent Auto 14.4 % (18.3-44.2); Mean Corpuscular HGB Conc 31.3 g/dl (32-36); Mean Corpuscular Hemoglobin 28.6 pg (26-34); Mean Corpuscular Volume 91.1 fl (80-100); Mean Platelet Volume 10.7 fl (7.4-10.4); Monocytes Absolute Auto 0.9 K/mm3 (0.1-0.6); Monocytes Percent Auto 9.8 % (2.6-8.5); Neutrophils Absolute Auto 6.5 K/mm3 (1.3-6.7); Neutrophils Percent Auto 74.8 % (45.5-73.1); Platelet Count Result 189 k/mm3 (150-375); Red Cell Distribution Width 14.5 % (11.5-14.5); White Blood Count 8.7 K/mm3 (4.5-10.0)
[2021-12-16 05:50] LABS: Anion Gap 4 mmol/L (8-16); Blood Urea Nitrogen 13 mg/dL (7-17); Calcium 8.8 mg/dL (8.4-10.2); Carbon Dioxide 27 mmol/L (22-30); Chloride 103 mmol/L (98-107); Estimated CRCL calculation 82 ml/min; Estimated Glomerular Filt Rate > 60; Glucose 118 mg/dL (65-110); Potassium 4.5 mmol/L (3.4-5.0); Sodium 134 mmol/L (137-145)
[2021-12-16] MEDS: KETOROLAC 15 MG/ML VIAL (*BKC) IV PUSH ×2 (05:59→12:10)
[2021-12-16] MEDS: diphenhydrAMINE HCl INJ 50 MG/ML VIAL 25 MG IV PUSH ×2 (07:57→17:33)
[2021-12-16] MEDS: oxyCODONE/ACETAMINOPHEN (*CRX) 5-325 MG TABLET 2 TABLET PO ×2 (07:58→17:32)
[2021-12-16] MEDS: SENNA/DOCUSATE SODIUM TABLET 2 TAB PO ×2 (09:12→17:29)
[2021-12-16] MEDS: FUROSEMIDE 20 MG TABLET PO (09:13)
[2021-12-16] MEDS: PANTOPRAZOLE 40 MG TABLET PO (09:13)
[2021-12-16] MEDS: polyethylene glycoL 3350 17 GM POWD.PACK PO (09:13)
[2021-12-16] MEDS: ASPIRIN 325 MG ENTERIC TABLET 650 MG PO (09:14)
[2021-12-16] MEDS: lisinopriL 10 MG TABLET PO (09:14)
[2021-12-16] MEDS: ATORVASTATIN 20 MG TABLET PO (09:14)
[2021-12-16] MEDS: amLODIPine BESYLATE 5 MG TABLET PO (09:14)
[2021-12-16] MEDS: FLUoxetine HCL 20 MG CAPSULE 60 MG PO (09:32)
--- NOTE | 2021-12-16 10:16 | WPDANESPN ---
Anes - Prog Note Post-Op Date/Time: 12/16/21 10:16 Cardiovascular status: normal Respiratory status: normal Airway patency: baseline Mental status: baseline Post-Op hydration status: normal Vital Signs: Last Vital Signs Temp 37.1 C 12/16/21 08:24 Pulse 56 L 12/16/21 08:24 Resp 16 12/16/21 08:24 BP 126/50 L 12/16/21 08:24 Pulse Ox 100 12/16/21 08:24 Pain Score (VAS): 3 I/O: Intake & Output 12/15/21 12/16/21 12/16/21 23:59 07:59 15:59 Intake Total 240 490 360 Balance 240 490 360 Laboratory Tests 12/16/21 05:18 12/16/21 05:18 12/16/21 12/16/21 05:18 05:18 WBC 8.7 RBC 3.50 L Hgb 10.0 L Hct 31.9 L MCV 91.1 MCH 28.6 MCHC 31.3 L RDW 14.5 Plt Count 189 MPV 10.7 H Immature Gran % (Auto) 0.6 H Neut % (Auto) 74.8 H Lymph % (Auto) 14.4 L [place] % (Auto) 9.8 H Eos % (Auto) 0.2 Baso % (Auto) 0.2 Lymph # (Auto) 1.25 [place] # (Auto) 0.9 H Eos # (Auto) 0.0 Baso # (Auto) 0.0 Abs Immat Gran (auto) 0.05 H Absolute Neuts (auto) 6.5 Absolute Nucleated RBC 0.0 Nucleated RBC % 0.0 Sodium 134 L Potassium 4.5 Chloride 103 Carbon Dioxide 27 Anion Gap 4 L BUN 13 Creatinine 0.70 Estim Creat Clear Calc 82 Estimated GFR > 60 Glucose 118 H Calcium 8.8 Post-procedural complaints: none Patient Feedback: Patient satisfied with anesthetic care.
--- NOTE | 2021-12-16 10:18 | PM.PNORT ---
Progress Note: A&P Assessment and Plan (1) Total knee replacement status: Qualifiers: Laterality: right Qualified Code(s): Z96.651 - Presence of right artificial knee joint Code(s): Z96.659 - Presence of unspecified artificial knee joint Status: Acute Assessment and Plan: POD #1: RIGHT TKA Continue PT/OT. WBAT. Walker. Fall Risk. Continue pain control. Ice. DVT prophylaxis. SCDs. Incentive spirometry. Monitor dressing. Change prior to discharge. Dispo: Home with Home Health pending progress with PT/OT. (2) Postoperative hypotension: Code(s): I95.81 - Postprocedural hypotension Status: Acute Assessment and Plan: Hypotension and Bradycardia post-op. Patient asymptomatic. HgB stable. Will continue to monitor. Hold BP medications at this time. If improvement today, possible for discharge home. Additional Plan Reviewed postoperative BP, HR and Labs with attending MD, Dr. Michael Lindsey. Recommendations as above. Time Spent With Patient Time with patient: less than 15 minutes Subjective Subjective Date/Time Seen: 12/16/21 10:18 Post Op day: 1 Principal diagnosis: Right Knee DJD Interval history: POD #1: Right TKA Concerned with low BP. Mild nausea. No vomiting. Pain well controlled. Working well with PT/OT. In chair at time of exam. Review of Systems Review of Systems: All systems reviewed & are unremarkable except as noted in HPI and below Constitutional: Constitutional: Denies fever(s) and Denies headache(s) ENT: Denies headache(s) Cardiovascular: Cardiovascular: Denies chest pain, Denies diaphoresis, Denies palpitations and Denies dyspnea Respiratory: Respiratory: Denies dyspnea Gastrointestinal: Gastrointestinal: Denies abdominal pain, Denies constipation, Denies nausea and Denies vomiting Genitourinary: Genitourinary: Reports nocturia and Denies dysuria Musculoskeletal: Musculoskeletal: Reports arthralgias (Right Knee ) and Reports joint swelling (Right Knee ) Neurologic: Denies headache(s) Endocrine: Endocrine: Denies palpitations Exam Const: General: comfortable and no acute distress Resp: Effort & Inspection: normal respiratory effort Cardio: Rate: regular rate Rhythm: regular rhythm GI: GI Palp: Yes Soft to palpation, No Tenderness to palpation present (GI) and No Guarding due to palpation present (GI) Skin: Wounds: wounds noted Other: Incision c/d/i. No surrounding redness/warmth. No hematoma. Mild ecchymosis. No wound dehiscence Neuro: Cognition (Neuro): normal cognition Other: NV intact aside from block. Moves toes. Sensation intact to light touch. +ankle dorsiflexion/plantarflexion. Extrem: Right lower extremity: normal to inspection, full ROM (ROM limited due to recent surgical intervention ) and knee Details: tenderness (diffuse, mild ) and swelling (diffuse, mild ) Psych: Mental Status: mental status grossly normal Objective Data Vital Signs Vital Signs: Vital Signs - 24 hr 12/15/21 10:20 12/15/21 10:35 12/15/21 10:52 Temperature 36.9 C Pulse Rate 72 75 75 Respiratory Rate 12 19 15 Blood Pressure 136/69 143/75 H 134/61 Pulse Oximetry 95 100 97 12/15/21 11:07 12/15/21 11:37 12/15/21 12:00 Temperature 36.9 C 36.6 C Pulse Rate 70 67 62 Respiratory Rate 16 16 Blood Pressure 142/61 H 101/83 Pulse Oximetry 96 95 12/15/21 12:37 12/15/21 16:00 12/15/21 19:21 Temperature 36.6 C 36.6 C Pulse Rate 60 56 L 53 L Respiratory Rate 17 20 Blood Pressure 107/63 119/64 Pulse Oximetry 97 98 12/15/21 20:00 12/15/21 21:00 12/16/21 00:00 Temperature Pulse Rate 56 L 45 L Respiratory Rate 20 Blood Pressure Pulse Oximetry 98 98 12/16/21 00:37 12/16/21 04:00 12/16/21 04:19 Temperature 36.2 C L 36.6 C Pulse Rate 50 L 47 L 57 L Respiratory Rate 20 20 Blood Pressure 99/45 L 99/44 L Pulse Oximetry 95 95 12/16/21 08:00 12/16/21 08:24 Temperature 37.1 C Pulse Rate 64 56 L Respira
--- NOTE | 2021-12-16 14:07 | PC.NURSE ---
On 12/16/21, the students, [Shantal Lange, Deepak Byrne], provided care and completed [facility] documentation on this patient. I have reviewed the students' documentation and agree with the findings.
[2021-12-17] VITALS (10 sets, daily range): BP systolic 111–131; BP diastolic 51–65; PULSE 63–74; RESP 14–20; TEMP 36.1–36.7; O2SAT 93–98
[2021-12-17] MEDS: oxyCODONE/ACETAMINOPHEN (*CRX) 5-325 MG TABLET 2 TABLET PO ×3 (00:36→16:46)
[2021-12-17] MEDS: SENNA/DOCUSATE SODIUM TABLET 2 TAB PO ×2 (08:01→16:47)
[2021-12-17] MEDS: FLUoxetine HCL 20 MG CAPSULE 60 MG PO (08:01)
[2021-12-17] MEDS: PANTOPRAZOLE 40 MG TABLET PO (08:02)
[2021-12-17] MEDS: ATORVASTATIN 20 MG TABLET PO (08:02)
[2021-12-17] MEDS: polyethylene glycoL 3350 17 GM POWD.PACK PO (08:02)
[2021-12-17] MEDS: ASPIRIN 325 MG ENTERIC TABLET 650 MG PO (08:02)
--- NOTE | 2021-12-17 09:39 | PM.PNORT ---
Progress Note: A&P Assessment and Plan (1) Total knee replacement status: Qualifiers: Laterality: right Qualified Code(s): Z96.651 - Presence of right artificial knee joint Code(s): Z96.659 - Presence of unspecified artificial knee joint Status: Acute Assessment and Plan: POD #2: RIGHT TKA Continue PT/OT. WBAT. Walker. Fall Risk. Continue pain control. Ice. DVT prophylaxis. SCDs. Incentive spirometry. Monitor dressing. Change prior to discharge. Dispo: Home with Home Health pending medical stability/progress with PT/OT (2) Postoperative hypotension: Code(s): I95.81 - Postprocedural hypotension Status: Acute Assessment and Plan: Continued postoperative hypotension. HR improved. HTN medications held this AM. Now with complaints of lightheadedness. CBC, CMP ordered. Medicine team consulted. Appreciate input. Subjective Subjective Date/Time Seen: 12/17/21 09:39 Interval history: POD #2: Right TKA Pain increased today. Still concerned with low BP and now lightheadedness. No other concerns. Review of Systems Review of Systems: All systems reviewed & are unremarkable except as noted in HPI and below Constitutional: Constitutional: Denies fever(s) and Denies headache(s) ENT: Denies headache(s) Cardiovascular: Cardiovascular: Denies chest pain, Denies chest pain at rest, Denies diaphoresis, Reports lightheadedness, Denies palpitations and Denies dyspnea Respiratory: Respiratory: Denies dyspnea Gastrointestinal: Gastrointestinal: Denies abdominal pain, Denies constipation, Denies nausea and Denies vomiting Genitourinary: Genitourinary: Reports nocturia and Denies dysuria Musculoskeletal: Musculoskeletal: Reports arthralgias (Right Knee ) and Reports joint swelling (Right Knee ) Neurologic: Denies headache(s) Endocrine: Endocrine: Denies palpitations Objective Data Vital Signs Vital Signs: Vital Signs - 24 hr 12/16/21 12:00 12/16/21 12:02 12/16/21 16:00 Temperature 36.9 C Pulse Rate 56 L 57 L 57 L Respiratory Rate 16 Blood Pressure 109/57 L Pulse Oximetry 99 12/16/21 19:48 12/16/21 20:00 12/16/21 21:13 Temperature 36.6 C Pulse Rate 70 55 L Respiratory Rate 20 20 Blood Pressure 111/60 Pulse Oximetry 98 98 97 12/17/21 00:00 12/17/21 04:00 12/17/21 04:27 Temperature 36.7 C Pulse Rate 63 74 64 Respiratory Rate 20 Blood Pressure 111/51 L Pulse Oximetry 93 Intake/Output Intake/Output: Intake & Output 12/14/21 12/15/21 12/16/21 12/17/21 23:59 23:59 23:59 23:59 Intake Total 1030 1930 790 Balance 1030 1930 790 Meds/Results Medications: Active Medications Generic Name Dose Route Start Last Admin Trade Name Freq PRN Reason Stop Dose Admin Acetaminophen 1,000 mg 12/15/21 10:52 Acetaminophen 500 Mg Tablet PO Q6H PRN Pain Rated 1-3 Amlodipine Besylate 5 mg 12/16/21 09:00 12/16/21 09:14 Amlodipine Besylate 5 Mg Tablet PO 5 mg QAM MARIAELENA Administration Aspirin 650 mg 12/16/21 09:00 12/17/21 08:02 Aspirin 325 Mg Enteric Tablet PO 650 mg DAILY MARIAELENA Administration Atorvastatin Calcium 20 mg 12/16/21 09:00 12/17/21 08:02 Atorvastatin 20 Mg Tablet PO 20 mg QAM MARIAELENA Administration Diazepam 5 mg 12/15/21 10:52 Diazepam (*Crx) 5 Mg Tablet PO Q8H PRN Spasms Diphenhydramine HCl 25 mg 12/15/21 10:52 12/16/21 17:33 Diphenhydramine Hcl Inj 50 Mg/Ml Vial IV PUSH 25 mg Q6H PRN Administration Itching Fluoxetine HCl 60 mg 12/16/21 09:00 12/17/21 08:01 Fluoxetine Hcl 20 Mg Capsule PO 60 mg QAM MARIAELENA Administration Furosemide 20 mg 12/16/21 09:00 12/16/21 09:13 Furosemide 20 Mg Tablet PO 20 mg QAM MARIAELENA Administration Lisinopril 10 mg 12/16/21 09:00 12/16/21 09:14 Lisinopril 10 Mg Tablet PO 10 mg QAM MARIAELENA Administration Naloxone HCl 0.1 mg 12/15/21 10:52 Naloxone Hcl 0.4 Mg/Ml Vial IV PUSH Q2
[2021-12-17 09:55] LABS: Basophils Percent Auto 0.5 % (0.2-1.2); Eosinophils Absolute Auto 0.3 K/mm3 (0-0.3); Eosinophils Percent Auto 4.6 % (0-4.4); Hematocrit 31.1 % (37.0-47.0); Hemoglobin 9.6 g/dL (12.0-15.0); Immature Granulocyte Absolute 0.02 K/mm3 (0.00-0.031); Immature Granulocyte Percent A 0.3 % (0-0.5); Lymphocytes Absolute Auto 1.16 K/mm3 (0.9-3.2); Lymphocytes Percent Auto 19.8 % (18.3-44.2); Mean Corpuscular HGB Conc 30.9 g/dl (32-36); Mean Corpuscular Hemoglobin 28.2 pg (26-34); Mean Corpuscular Volume 91.5 fl (80-100); Mean Platelet Volume 10.4 fl (7.4-10.4); Monocytes Absolute Auto 0.5 K/mm3 (0.1-0.6); Monocytes Percent Auto 7.8 % (2.6-8.5); Neutrophils Absolute Auto 3.9 K/mm3 (1.3-6.7); Platelet Count Result 171 k/mm3 (150-375); Red Cell Distribution Width 14.8 % (11.5-14.5); White Blood Count 5.9 K/mm3 (4.5-10.0)
[2021-12-17 10:06] LABS: Alanine Aminotransferase 28 U/L (4-35); Albumin Level 3.4 g/dL (3.5-5.1); Alkaline Phosphatase 99 U/L (38-126); Anion Gap 9 mmol/L (8-16); Aspartate Amino Transferase 35 U/L (14-36); Bilirubin,Total 0.5 mg/dL (0.2-1.3); Blood Urea Nitrogen 9 mg/dL (7-17); Calcium 8.4 mg/dL (8.4-10.2); Carbon Dioxide 24 mmol/L (22-30); Chloride 104 mmol/L (98-107); Estimated CRCL calculation 95 ml/min; Estimated Glomerular Filt Rate > 60; Glucose 141 mg/dL (65-110); Potassium 3.9 mmol/L (3.4-5.0); Sodium 137 mmol/L (137-145)
--- NOTE | 2021-12-17 10:39 | PM.DS ---
DS: Summary Time Spent with Patient Time attestation: Total time spent providing and/or coordinating discharge services: DS: Data Data Completed and Pending Labs on day of discharge: Labs from last 24 hours 12/17/21 12/17/21 09:45 09:45 WBC 5.9 RBC 3.40 L Hgb 9.6 L Hct 31.1 L MCV 91.5 MCH 28.2 MCHC 30.9 L RDW 14.8 H Plt Count 171 MPV 10.4 Immature Gran % (Auto) 0.3 Neut % (Auto) 67.0 Lymph % (Auto) 19.8 [place] % (Auto) 7.8 Eos % (Auto) 4.6 H Baso % (Auto) 0.5 Lymph # (Auto) 1.16 [place] # (Auto) 0.5 Eos # (Auto) 0.3 Baso # (Auto) 0.0 Abs Immat Gran (auto) 0.02 Absolute Neuts (auto) 3.9 Absolute Nucleated RBC 0.0 Nucleated RBC % 0.0 Sodium 137 Potassium 3.9 Chloride 104 Carbon Dioxide 24 Anion Gap 9 BUN 9 Creatinine 0.60 L Estim Creat Clear Calc 95 Estimated GFR > 60 Glucose 141 H Calcium 8.4 Total Bilirubin 0.5 AST 35 ALT 28 Alkaline Phosphatase 99 Total Protein 7.0 Albumin 3.4 L Discharge Plan Discharge Attending physician on discharge: Michael Lindsey Consulting providers: Rome Schmitt Discharging Clinician: Allie Grissom Anticipated Discharge Date/Time: 12/17/21 12:00 Patient Disposition: Home Health Service Activity: may shower, no driving, follow weight bearing status and other - see discharge instructions Diet: as tolerated Wound Care Instructions: follow printed instructions Discharge Instructions: Per Care Coordination, patient to discharge with [facility] ( ) for PT/OT and residential services. Please fax Discharge instructions and medication sheets to . Remove the Scopolamine patch that was placed behind your left ear in 72 hours or less. Wash your hands after touching. Post Op Total Knee Replacement Instructions Dr. Michael Lindsey [phone] ? Your dressing will be changed prior to your discharge. You will be sent home with one additional dressing to be changed on post op day 7 by the home health RN. Your jarrett will be removed on the 14th day after surgery and steri-strips will be placed. Please practice good hand hygiene and do not touch your incision in order to prevent infection. ? You may shower with your dressing but do not submerge in a bath tub. ? Do not drive or operate machinery until you are released by Dr. Lindsey. ? Do not walk without a walker for any reason until you are released by Dr. Lindsey. ? Continue to use your ice machine. Please use a towel or pillow case to protect your skin before applying your ice machine. ? Do NOT place a pillow under your knee. You may use a pillow from the calf down if needed. This will prevent a flexion contracture postoperatively. ? You may begin use of your CPM machine at home if you have been given one pre-operatively. DO NOT USE WHILE YOU ARE SLEEPING. ? Your first post op appointment was sent to you via mail preoperatively. If you have any questions or are unable to make your appointment, please contact our office for scheduling questions. ? Your medications have been sent to your pharmacy. You have been sent home with pain medication. We have also sent you with a stool softener as narcotics can cause constipation. Please keep this in mind during your postoperative recovery. If you are not experiencing regular bowel movements, please contact our office for further instruction. ? Please contact our office with any questions/concerns regarding your knee at [phone]. Patient Instructions: Antibiotic Form Follow-up/Referrals: Michael Lindsey MD [Physician] - Keep Reg. Scheduled Appt. David,Darlyn Coleman NP [Primary Care Provider] - Call for Appointment Discharge Medications: New aspirin 325 mg Tablet,Delayed Release (Dr/Ec) 650 mg PO DAILY 28 Days Qty: 56 RF: 0 sennosides-docusate sodium [Senokot-S] 8.6-50 mg Tablet 2 tablet PO BID 28 Days Qty: 112 RF: 0 oxycod
--- NOTE | 2021-12-17 11:20 | PM.IMCN ---
Assessment and Plan Assessment and plan (1) Dizziness and giddiness: Code(s): R42 - Dizziness and giddiness Status: Acute Assessment and Plan: New onset dizziness and lightheadedness since surgical procedure scopolamine patch was placed at surgery and was removed today patient appears to be euvolemic orthostatic blood pressures ordered PT and OT working with patient believes this is secondary to the scopolamine patch and experiencing side effects (2) Total knee replacement status: Qualifiers: Laterality: right Qualified Code(s): Z96.651 - Presence of right artificial knee joint Code(s): Z96.659 - Presence of unspecified artificial knee joint Status: Acute Assessment and Plan: postop day 2 postop care managed by Orthopedics pain medication and antiemetics on board DVT prophylaxis deferred to ortho (3) Hypotension: Code(s): I95.9 - Hypotension, unspecified Status: Acute Assessment and Plan: blood pressures seem to be labile and have been reported to be 99/44 this morning blood pressure medications have been held today continue to trend blood pressures adjust therapy as indicated (4) Hypertension: Code(s): I10 - Essential (primary) hypertension Status: Acute Assessment and Plan: Currently experiencing hypotension BP medications on hold for now trend blood pressures adjust therapy as indicated Additional Plan thank you for asking us to be a part of this case please call for any questions HPI Data of Consult Consult date: 12/17/21 Requesting Physician: Michael Lindsey MD Primary Care Provider: Darlyn Hernandez, [employer]PENTERS SUPERVISOR Consult Narrative Narrative: Alexandrea Wolfe is a 56 year old female With past medical history of gastric bypass, JAZMINE, anxiety, hypertension who had an elective knee replacement with Dr. Lindsey on 12/15/2021. Since her surgery patient has been experiencing bradycardia, hypotension, dizziness, lightheadedness, and she states that she feels jumbled. She stated that it did not matter what she is doing she is dizzy. She also stated that she is had a scopolamine patch on since surgery for postoperative nausea vomiting. She denies any other symptoms like chest pain, shortness of breath, sweats, fevers, chills, nausea, diarrhea, constipation, weakness or fatigue. She is currently say that her pain is a 5/10 and she is eating okay however she had gastric bypass so she is eating which she normally eats. Blood pressure before activities on 114/59 and after activity was 148/66. Patient denies any urinary issues and states that she is drinking eating okay. Patient is being consulted under the hospitalist service for further recommendations of dizziness lightheadedness. Review of Systems Review of Systems: All systems reviewed & are unremarkable except as noted in HPI and below PMFSH Past Medical History Medical History Aftercare following left knee joint replacement surgery Anxiety Bilateral knee pain BMI greater than 40 DJD (degenerative joint disease) of knee Hiatal hernia Hyperlipidemia Hypertension Left knee DJD JAZMINE (obstructive sleep apnea) PONV (postoperative nausea and vomiting) Postoperative hypotension Pre-op testing Right knee DJD Surgical History Surgical History Gastric bypass status for obesity 01/2021 History of hysterectomy Total knee replacement status Family History Family History Other Family history of malignant neoplasm Social History Social History Smoking status: Never smoker Second hand tobacco smoke exposure: No Alcohol intake: current Alcohol use details: STOPPED DRINKING 35 YEARS AGO
--- NOTE | 2021-12-17 12:36 | PC.NURSE ---
On 12/17/21, the student, [Shantal Lange, Gustavo Whitaker], provided care and completed [facility] documentation on this patient. I have reviewed the student's documentation and agree with the findings.
[2021-12-18] VITALS: PULSE 92
[2021-12-18] MEDS: oxyCODONE/ACETAMINOPHEN (*CRX) 5-325 MG TABLET 2 TABLET PO ×2 (01:52→07:55)
[2021-12-18 03:19] VITALS: BP 109/45; PULSE 72; RESP 17; TEMP 35.9; O2SAT 94
[2021-12-18 04:00] VITALS: PULSE 62
--- NOTE | 2021-12-18 07:02 | PM.IMCN ---
Assessment and Plan Assessment and plan (1) Dizziness and giddiness: Code(s): R42 - Dizziness and giddiness Status: Acute Assessment and Plan: New onset dizziness and lightheadedness since surgical procedure scopolamine patch was placed at surgery and was removed today patient appears to be euvolemic orthostatic blood pressures ordered PT and OT working with patient believes this is secondary to the scopolamine patch and experiencing side effects 12/18/21: - Now asymptomatic and improved BP - Not orthostatic. - Medicine signing off and BP meds have been restarted. (2) Total knee replacement status: Qualifiers: Laterality: right Qualified Code(s): Z96.651 - Presence of right artificial knee joint Code(s): Z96.659 - Presence of unspecified artificial knee joint Status: Acute Assessment and Plan: postop day 2 postop care managed by Orthopedics pain medication and antiemetics on board DVT prophylaxis deferred to ortho 12/18/21: - Further treatment per Orthopedics. medicine signing off. (3) Hypotension: Qualifiers: Hypotension type: unspecified hypotension type Qualified Code(s): I95.9 - Hypotension, unspecified Code(s): I95.9 - Hypotension, unspecified Status: Acute Assessment and Plan: blood pressures seem to be labile and have been reported to be 99/44 this morning blood pressure medications have been held today continue to trend blood pressures adjust therapy as indicated 12/18/21: - BP is improved this morning and she has no deficits. - Not Orthostatic. (4) Hypertension: Qualifiers: Hypertension type: unspecified Qualified Code(s): I10 - Essential (primary) hypertension Code(s): I10 - Essential (primary) hypertension Status: Acute Assessment and Plan: Currently experiencing hypotension BP medications on hold for now trend blood pressures adjust therapy as indicated 12/18/21: - Medicine signing off. - Stable BP this AM at 109/45. BP has been as high as 131/65 in past 23 hours. - Asymptomatic now. HPI Data of Consult Consult date: 12/18/21 Requesting Physician: KATHIE TeixeiraN-C Primary Care Provider: Darlyn Hernandez, INSURANCE LOSS CONTROL SURVEYOR Consult Narrative Narrative: Alexandrea Wolfe is a 56 year old female who is being seen in consult for hypotension status post Right Total Knee Arthroscopy. It is believed that the Scopolomine patch was the causative factor in her Hypotension. She has not been receiving her Lasix, Lisinopril and her Amlodipine. Currently her BP is normal. Pt. is asymptomatic at this time and Medicine is signing off with full discharge to come from Orthopedic service. Review of Systems Review of Systems: All systems reviewed & are unremarkable except as noted in HPI and below PMFSH Past Medical History Medical History Aftercare following left knee joint replacement surgery Anxiety Bilateral knee pain BMI greater than 40 DJD (degenerative joint disease) of knee Hiatal hernia Hyperlipidemia Hypertension Left knee DJD JAZMINE (obstructive sleep apnea) PONV (postoperative nausea and vomiting) Postoperative hypotension Pre-op testing Right knee DJD Surgical History Surgical History Gastric bypass status for obesity 01/2021 History of hysterectomy Total knee replacement status Family History Family History Other Family history of malignant neoplasm Social History Social History Smoking status: Never smoker Second hand tobacco smoke exposure: No Alcohol intake: current Alcohol use details: STOPPED DRINKING 35 YEARS AGO Substance use: never Living arrangements: with family
[2021-12-18] MEDS: ASPIRIN 325 MG ENTERIC TABLET 650 MG PO (07:54)
[2021-12-18] MEDS: PANTOPRAZOLE 40 MG TABLET PO (07:55)
[2021-12-18] MEDS: FLUoxetine HCL 20 MG CAPSULE 60 MG PO (07:55)
[2021-12-18] MEDS: lisinopriL 10 MG TABLET PO (07:55)
[2021-12-18] MEDS: amLODIPine BESYLATE 5 MG TABLET PO (07:55)
[2021-12-18] MEDS: FUROSEMIDE 20 MG TABLET PO (07:56)
[2021-12-18] MEDS: SENNA/DOCUSATE SODIUM TABLET 2 TAB PO (07:56)
[2021-12-18] MEDS: ATORVASTATIN 20 MG TABLET PO (07:56)
[2021-12-18] MEDS: polyethylene glycoL 3350 17 GM POWD.PACK PO (07:58)
[2021-12-18 08:00] VITALS: PULSE 79
[2021-12-18 12:00] VITALS: PULSE 62
--- NOTE | 2021-12-18 12:11 | PM.PNORT ---
Progress Note: A&P Assessment and Plan (1) Aftercare following left knee joint replacement surgery: Code(s): Z47.1 - Aftercare following joint replacement surgery; Z96.652 - Presence of left artificial knee joint Status: Acute (2) Total knee replacement status: Qualifiers: Laterality: right Qualified Code(s): Z96.651 - Presence of right artificial knee joint Code(s): Z96.659 - Presence of unspecified artificial knee joint Status: Acute Assessment and Plan: POD #3: RIGHT TKA Continue PT/OT. WBAT. Walker. Fall Risk. Continue pain control. Ice. DVT prophylaxis. SCDs. Incentive spirometry. Dispo: Home with Home Health (3) Postoperative hypotension: Code(s): I95.81 - Postprocedural hypotension Status: Acute Assessment and Plan: Continued postoperative hypotension- improved. HR improved. Medicine team consulted. Appreciate input. Subjective Subjective Date/Time Seen: 12/18/21 12:11 Principal diagnosis: RT TKA Interval history: Better today. Pain well controlled. No dizzyness. Exam Const: General: comfortable and no acute distress Resp: Effort & Inspection: normal respiratory effort Cardio: Rate: regular rate Rhythm: regular rhythm GI: GI Palp: Yes Soft to palpation, No Tenderness to palpation present (GI) and No Guarding due to palpation present (GI) Skin: Wounds: wounds noted Other: Incision c/d/i. No surrounding redness/warmth. No hematoma. Mild ecchymosis. No wound dehiscence Neuro: Cognition (Neuro): normal cognition Other: NV intact. Moves toes. Sensation intact to light touch. +ankle dorsiflexion/plantarflexion. Extrem: Right lower extremity: normal to inspection, full ROM (ROM limited due to recent surgical intervention ) and knee Details: tenderness (diffuse, mild ) and swelling (diffuse, mild ) Psych: Mental Status: mental status grossly normal Objective Data Vital Signs Vital Signs: Vital Signs - 24 hr 12/17/21 13:20 12/17/21 16:00 12/17/21 19:16 Temperature 96.9 F L 97.7 F Pulse Rate 66 65 64 Respiratory Rate 14 18 Blood Pressure 131/65 114/54 L Pulse Oximetry 96 98 12/17/21 20:00 12/17/21 22:20 12/18/21 00:00 Temperature Pulse Rate 67 92 Respiratory Rate Blood Pressure Pulse Oximetry 95 12/18/21 03:19 12/18/21 04:00 Temperature 96.6 F L Pulse Rate 72 62 Respiratory Rate 17 Blood Pressure 109/45 L Pulse Oximetry 94 Intake/Output Intake/Output: Intake & Output 12/15/21 12/16/21 12/17/21 12/18/21 23:59 23:59 23:59 23:59 Intake Total 1030 1930 1580 640 Balance 1030 1930 1580 640 Meds/Results Medications: Active Medications Generic Name Dose Route Start Last Admin Trade Name Freq PRN Reason Stop Dose Admin Acetaminophen 1,000 mg 12/15/21 10:52 Acetaminophen 500 Mg Tablet PO Q6H PRN Pain Rated 1-3 Amlodipine Besylate 5 mg 12/16/21 09:00 12/18/21 07:55 Amlodipine Besylate 5 Mg Tablet PO 5 mg QAM MARIAELENA Administration Aspirin 650 mg 12/16/21 09:00 12/18/21 07:54 Aspirin 325 Mg Enteric Tablet PO 650 mg DAILY MARIAELENA Administration Atorvastatin Calcium 20 mg 12/16/21 09:00 12/18/21 07:56 Atorvastatin 20 Mg Tablet PO 20 mg QAM MARIAELENA Administration Diazepam 5 mg 12/15/21 10:52 Diazepam (*Crx) 5 Mg Tablet PO Q8H PRN Spasms Diphenhydramine HCl 25 mg 12/15/21 10:52 12/16/21 17:33 Diphenhydramine Hcl Inj 50 Mg/Ml Vial IV PUSH 25 mg Q6H PRN Administration Itching Fluoxetine HCl 60 mg 12/16/21 09:00 12/18/21 07:55 Fluoxetine Hcl 20 Mg Capsule PO 60 mg QAM MARIAELENA Administration Furosemide 20 mg 12/16/21 09:00 12/18/21 07:56 Furosemide 20 Mg Tablet PO 20 mg QAM MARIAELENA Administration Lisinopril 10 mg 12/16/21 09:00 12/18/21 07:55 Lisinopril 10 Mg Tablet PO 10 mg QAM MARIAELENA Administration Naloxone HCl 0.1 mg 12/15/21 10:52 Naloxone Hcl 0.4 Mg/Ml Vial IV PUSH Q2M OR
--- NOTE | 2021-12-21 09:46 | PM.DS ---
DS: Admitting Diagnosis Discharge Date 12/18/21 Admitting Diagnosis Right knee DJD DS: Discharge Diagnosis Discharge Diagnosis (1) Dizziness and giddiness: Code(s): R42 - Dizziness and giddiness Status: Acute Assessment and Plan: Resolved. (2) Hypotension: Qualifiers: Hypotension type: unspecified hypotension type Qualified Code(s): I95.9 - Hypotension, unspecified Code(s): I95.9 - Hypotension, unspecified Status: Acute Assessment and Plan: Hypotension resolved. Not found to be orthostatic per hospitalist team. BP medications resumed. (3) Total knee replacement status: Qualifiers: Laterality: right Qualified Code(s): Z96.651 - Presence of right artificial knee joint Code(s): Z96.659 - Presence of unspecified artificial knee joint Status: Acute Assessment and Plan: POD #3: RIGHT TKA Continue PT/OT. WBAT. Walker. Fall Risk. Continue pain control. Ice. DVT prophylaxis. SCDs. Incentive spirometry. Dispo: Home with Home Health DS: Summary Hospital Course Reason for hospitalization: right total knee arthroplasty Hospital Course: 56-year-old female admitted status post right total knee arthroplasty for postoperative medical management, pain control and mobilization with physical and occupational therapy. Patient had difficulty with hypotension and bradycardia postoperatively. Her blood pressure medications were held. She did not develop symptoms until postop day 2 during which point she felt lightheaded with ambulation. Hospitalist service was consulted to help with blood pressure management. Patient was felt to be stable on postop day 3 and blood pressure medications resumed. Patient was cleared by Physical and Occupational therapy to be discharged home with home health. She will follow up in the outpatient orthopedic clinic. Status at Discharge Functional status at discharge: uses cane/walker Overall status at discharge: patient is progressing back to baseline Time Spent with Patient Time attestation: Total time spent providing and/or coordinating discharge services: Exam Const: General: comfortable and no acute distress Resp: Effort & Inspection: normal respiratory effort Cardio: Rate: regular rate Rhythm: regular rhythm GI: GI Palp: Yes Soft to palpation, No Tenderness to palpation present (GI) and No Guarding due to palpation present (GI) Skin: Wounds: wounds noted Other: Incision c/d/i. No surrounding redness/warmth. No hematoma. Mild ecchymosis. No wound dehiscence Neuro: Cognition (Neuro): normal cognition Other: NV intact. Moves toes. Sensation intact to light touch. +ankle dorsiflexion/plantarflexion. Extrem: Right lower extremity: normal to inspection, full ROM (ROM limited due to recent surgical intervention ) and knee Details: tenderness (diffuse, mild ) and swelling (diffuse, mild ) Psych: Mental Status: mental status grossly normal Discharge Plan Discharge Attending physician on discharge: Michael Lindsey Consulting providers: Rome Schmitt ; rDu Stout ; Allie Grissom Discharging Clinician: Allie Grissom Anticipated Discharge Date/Time: 12/17/21 12:00 Patient Disposition: Home Health Service Activity: may shower, no driving, follow weight bearing status and other - see discharge instructions Diet: as tolerated Wound Care Instructions: follow printed instructions Discharge Instructions: Per Care Coordination, patient to discharge with [facility] ( ) for PT/OT and penitentiary services. Please fax Discharge instructions and medication sheets to . Remove the Scopolamine patch that was placed behind your left ear in 72 hours or less. Wash your hands after touching. Post Op Total Knee Replacement Instructions Dr. Michael Lindsey [phone] ? Your dressing will be changed prior to your discharge. You will be sent h
== END 2021-12-18 13:22 | disposition home health service (06) ==
LOC: ANHSURGERY 14:41 → ANH2MED 12-17 07:00
PROVIDERS: Nurse Practitioner Family; Admitting Provider Orthopaedic Surgery; PCP Nurse Practitioner; Visit Provider Nurse Practitioner Adult Health
PROC: (CPT 27447; principal; 2021-12-15 07:30)
DX: M17.11 Unilateral primary osteoarthritis, right knee (principal); I95.81 Postprocedural hypotension; R42 Dizziness and giddiness; G89.18 Other acute postprocedural pain; R11.0 Nausea; I10 Essential (primary) hypertension; E78.5 Hyperlipidemia, unspecified; G47.33 Obstructive sleep apnea (adult) (pediatric); F41.9 Anxiety disorder, unspecified; Z98.84 Bariatric surgery status; E66.9 Obesity, unspecified; Z68.38 Body mass index [BMI] 38.0-38.9, adult
CPT/HCPCS: 27447; 64447; 36415; 73560; 80048; 80053; 85025; 97110; 97116; 97161; 97165; 97530; 97535; A9270; C1713; C1776; G0378; J0171; J0461; J0690; J1100; J1200; J1885; J2250; J2270; J2405; J2704; J2795; J3010; J7030; J7120

== ENCOUNTER 2023-03-16 02:26 | Day surgery (SDC) | payer OTHER, SELFPAY ==
[2023-03-06 14:44] VITALS: BMI 40.3
--- NOTE | 2023-03-06 14:52 | PC.NURSE ---
Report to the Outpatient Waiting Room, entrance under the green pavilion located off [facility], at time _0600_ on date 03/16/23. Planned Procedure Time: __0730_. Time changes happen often and if your time is changed the preop area will call you the afternoon before. - You and your visitor will be asked to self-screen and do not enter if you have any COVID symptoms. - A mask is optional within the hospital at this time. Patients may have clear liquids (water, carbonated beverages, clear teas, apple juice) until 3 hours prior to surgery with a maximum of 20 ounces. - No food from midnight until time of surgery - Infants may have breast milk until 4 hours before surgery, formula 6 hours prior to surgery. - Children will be allowed to drink immediately following surgery. If applicable, please bring a bottle or sippy cup to assist with drinking. Juice, water, soda, and popsicles are readily available. For infants on formula, please bring formula the day of surgery. Pacifiers are allowed. Take the following medications with a SIP of water the morning of surgery: AMLODIPINE, FLUOXETINE DO NOT STOP ANY OF YOUR OTHER PRESCRIPTION MEDICATIONS PRIOR TO SURGERY ?EXCEPT THE FOLLOWING Medications to discontinue per physician VITAMINS Date to take last dose 03/13/23__ Please no make-up, nail setswana, hairspray, perfume, deodorant, or body powder the day of surgery. No jewelry (including any body piercings) or valuables the day of surgery, leave them at home. Please take a shower or bath the night before, or the morning of, surgery with an antibacterial soap. Wear comfortable, loose fitting clothing. Children are encouraged to wear pajamas. - Jewelry must be removed prior to entering the operating room. Rings and piercings that are not removed may be cut off. - The hospital will not accept responsibility for valuables. - Please leave all valuables, including medications, at home the day of surgery. If you are going home after surgery, a licensed [facility] driver must drive you home. - NO public transportation without another adult if you receive anesthesia. - We recommend that an adult stay with you for 24 hours following discharge. - We also recommend that you do not drive, make important decision, drink alcoholic beverages, or take any drugs that were not prescribed by your health care provider for at least 24 hours after your discharge time. For Pediatric surgeries, we recommend two adults accompany the child home. Follow any additional instructions given to you from your surgeon. If you or anyone in your household have experienced Covid symptoms in the past week, please notify your surgeon or the nurse liaison at the phone number below for possible testing. Telephone instructions given to _[place]__and asked if any additional questions and then verbalized understanding. Patient advised to call surgeon office or pre surgery nurse liaison [phone] if any additional questions.
--- NOTE | 2023-03-15 12:50 | PM.IMHP ---
H&P: HPI History of Present Illness Date/Time: 03/15/23 12:50 Chief Complaint: Right foot deformity and pain. Narrative: 57-year-old woman with worsening deformity of the right hallux and 2nd toe. Pain with activity and weight-bearing. Difficulty with shoe wear. Presents for operative treatment. Review of Systems Constitutional: Constitutional: Denies fever(s) Eyes: Eyes: Denies blurry vision ENT: Reports Normal hearing present Cardiovascular: Cardiovascular: Denies chest pain and Denies dyspnea Respiratory: Respiratory: Denies dyspnea and Denies wheezing Gastrointestinal: Gastrointestinal: Denies abdominal pain Genitourinary: Genitourinary: Denies urinary urgency Musculoskeletal: Musculoskeletal: Reports as per HPI and Denies numbness Integumentary/Breasts: Skin/Breast: Denies changing lesions and Denies sores Neurologic: Reports Normal hearing present, Denies behavioral changes, Denies confusion, Denies numbness and Denies convulsions Psychiatric: Psychiatric: Denies behavioral changes, Denies confusion and Denies hallucinations Endocrine: Endocrine: Denies heat intolerance Hematologic/Lymphatic: Hematologic/Lymphatic: Denies easy bleeding Allergic/Immunologic: Allergic/Immunologic: Denies wheezing PMFSH Past Medical History Medical History Aftercare following left knee joint replacement surgery Anxiety Bilateral knee pain BMI greater than 40 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 Hallux rigidus Hallux valgus Hammer toe of right foot Hiatal hernia Hyperlipidemia Hypertension Left knee DJD JAZMINE (obstructive sleep apnea) PONV (postoperative nausea and vomiting) Postoperative hypotension Pre-op testing Right foot pain Right knee DJD Surgical History Surgical History Gastric bypass status for obesity 01/2021 History of hysterectomy Status post total right knee replacement Total knee replacement status Family History Family History Other Family history of malignant neoplasm Social History Social History Smoking status: Never smoker Second hand tobacco smoke exposure: No Alcohol intake: former Alcohol use details: STOPPED DRINKING 35 YEARS AGO Substance use: never Living arrangements: with family Additional living arrangements comments: [facility] Gender identity (if verbalized by the patient): Female Spiritual care concerns: No Meds Home Medications and Allergies Home Medications Medication Instructions Recorded Confirmed Type amlodipine 5 mg tablet 5 mg PO QAM 10/06/21 03/06/23 History atorvastatin 20 mg tablet 20 mg PO QAM 10/06/21 03/06/23 History calcium citrate 500 mg (2,376 mg) 500 mg PO TID 10/06/21 03/06/23 History effervescent tablet cyanocobalamin (vitamin B-12) 1,000 mcg PO WEEKLY 10/06/21 03/06/23 History 1,000 mcg tablet ferrous [id number] conc 1 cap PO 5XW 10/06/21 03/06/23 History capsule fluoxetine 20 mg tablet 20 mg PO QAM 10/06/21 03/06/23 History furosemide 20 mg tablet 20 mg PO QAM 10/06/21 03/06/23 History omeprazole 20 mg capsule,delayed 20 mg PO QAM 10/06/21 03/06/23 History release Allergies Allergy/AdvReac Type Severity Reaction Status Date / Time NSAIDS (Non-Steroidal AdvReac Unknown Other Verified 12/13/22 14:32 Anti-Inflamma Exam Const: General: No confusion Orientation/consciousness: No confusion HENMT: Head: normal to inspection, normocephalic and atraumatic Eyes: Conjunctivae: conjunctivae normal Sclera: sclerae normal Neck: Neck: supple and nontender Chest: Chest palpation & inspection: normal inspection of the chest Resp: Effort & Inspection: normal respiratory effort and no audible wheezes Cardio: Rate: regular rate R
[2023-03-16] VITALS (7 sets, daily range): BP systolic 120–153; BP diastolic 51–93; PULSE 51–83; RESP 14–20; TEMP 35.9–36.9; O2SAT 95–100
--- NOTE | ~2023-03-16 | XR_ITS ---
EXAMINATION: XR surgery orthopedic DATE: 03/16/2023 09:38 INDICATION: Right first and second toe alignment corrections TECHNIQUE: 3 fluoroscopic images of the right forefoot were obtained during procedure performed by Dr Vasu Barrios. Radiologist was not present for the imaging or procedure. The amount of fluoroscopy time u sed during this procedure was 0.2 minutes. COMPARISON: 12/13/2022 FINDINGS: Images demonstrate a chevron realignment osteotomy at the neck of the first metatarsal without cad intern al fixation and bunionectomy with distal osteotomy at the medial side of the head of the first metata rsal. Medial sided closing wedge osteotomy with medial sided staple fixation at the proximal metadiap hyseal region of the first proximal phalanx. Shortening osteotomy at the neck of the second metatarsa l which is fixed with 3 dorsal to plantar directed screws. There is expected small amount of postoper ative gas in the now slightly widened second metatarsophalangeal joint space. Reduction of the prior hammertoe configuration of the second toe which is fixed with a distal to proximal axially directed p ins which extends from the tuft of the distal phalanx through the middle and proximal phalanges and e xtending to the base of the second metatarsal. Alignment of the first and second rays appears near an atomic on the final images. No fractures identified. Mild osteoarthritis at the first and second meta tarsophalangeal joints. IMPRESSION: 1. Near-anatomic alignment of the first and second rays of the right foot post realignment osteotomie s. See procedure note for further detail. Reviewed, dictated and finalized at location A. IMPRESSION: 1. Near-anatomic alignment of the first and second rays of the right foot post realignment osteotomies. See procedure note for further detail.
[2023-03-16] MEDS: KETOROLAC 15 MG/ML VIAL (*BKC) IV PUSH (06:40)
[2023-03-16] MEDS: ACETAMINOPHEN 500 MG TABLET 1000 MG PO (06:40)
[2023-03-16] MEDS: LACTATED RINGERS 1,000 ML 30 ML IV CONT (06:40)
--- NOTE | 2023-03-16 06:50 | WPDANESEPPF ---
Anes - Initial Pre Proc Eval Procedure: Operation Date: 03/16/23 07:30 Proposed Procedures p Right Foot Hallux Valgus Correction, - Lj Barrios MD s First Metatarsal Osteotomy, Possible Phalangeal Osteotomy, - Lj Barrios MD s Second Hammer Toe Correction - Lj Barrios MD Date/Time: 03/16/23 06:50 Surgeon: Lj Barrios MD Pre Op Diagnosis: hallux valgus, 2nd crossover toe Patient Data Age: 57 Gender: F Height: 1.57 m Weight: 100 kg Allergies Allergy/AdvReac Type Severity Reaction Status Date / Time NSAIDS (Non-Steroidal AdvReac Unknown Other Verified 12/13/22 14:32 Anti-Inflamma Home Medications Medication Instructions Recorded Confirmed Type amlodipine 5 mg tablet 5 mg PO QAM 10/06/21 03/06/23 History atorvastatin 20 mg tablet 20 mg PO QAM 10/06/21 03/06/23 History calcium citrate 500 mg (2,376 mg) 500 mg PO TID 10/06/21 03/06/23 History effervescent tablet cyanocobalamin (vitamin B-12) 1,000 mcg PO WEEKLY 10/06/21 03/06/23 History 1,000 mcg tablet ferrous [id number] conc 1 cap PO 5XW 10/06/21 03/06/23 History capsule fluoxetine 20 mg tablet 20 mg PO QAM 10/06/21 03/06/23 History furosemide 20 mg tablet 20 mg PO QAM 10/06/21 03/06/23 History omeprazole 20 mg capsule,delayed 20 mg PO QAM 10/06/21 03/06/23 History release Patient hx anesthesia problems: none Family hx anesthesia problems: none Results Review: All pre-operative results and documents have been reviewed as part of the pre-operative evaluation. 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 Hallux rigidus Hallux valgus Hammer toe of right foot Hiatal hernia Hyperlipidemia Hypertension Left knee DJD JAZMINE (obstructive sleep apnea) PONV (postoperative nausea and vomiting) Postoperative hypotension Pre-op testing Right foot pain Right knee DJD Surgical History Surgical History Gastric bypass status for obesity 01/2021 History of hysterectomy Status post total right knee replacement Total knee replacement status Family History Family History Other Family history of malignant neoplasm Social History Social History Smoking status: Never smoker Second hand tobacco smoke exposure: No Alcohol intake: former Alcohol use details: STOPPED DRINKING 35 YEARS AGO Substance use: never Living arrangements: with family Additional living arrangements comments: [place] Gender identity (if verbalized by the patient): Female Spiritual care concerns: No Anes - Eval Final PreProcedure Day of Procedure 03/16/23 06:50 Patient weight: morbidly obese Heart: regular rate and rhythm Lungs: clear to auscultation Airway: Mallampati scale class II Neurological: alert and oriented Last oral intake: >/= 8 hours ASA classification: III Emergent: no Anesthetic plan: proceed Anesthesia type and monitoring: general LMA and standard monitoring Results Review: All pre-operative results and documents have been reviewed as part of the pre-operative evaluation. Informed Consent: The patient's anesthetic plan and its attendant risks and benefits were discussed with the patient/family/POA. Questions were solicited and answers provided to the satisfaction of the patient/family/POA.
[2023-03-16] MEDS: SCOPOLAMINE 1.5 MG PATCH TRANSDERM (06:57)
--- NOTE | 2023-03-16 07:01 | WPDHPUPDATE1 ---
History and Physical Update Update Date/Time: 03/16/23 07:01 History and Physical has been reviewed, including an updated exam of the patient. There are NO changes in the patient's condition. Risks, benefits, and alternatives have been discussed and questions answered. Patient agrees to proceed with procedure. Plan: RT foot hallux valgus correction- 1st metatarsal osteotomy, possible phalangeal osteotomy: Second hammertoe correction.
[2023-03-16] MEDS: ceFAZolin 2 GM/D5W 50 ML 2 GM/50 ML BAG IVPB (07:20)
[2023-03-16] MEDS: BUPivacaine HCL 0.5% 10 ML AMP 20 ML INFILTRATE (08:02)
--- NOTE | 2023-03-16 09:47 | W.PM.PROC2 ---
Procedure Note - Detailed Date of Procedure 03/16/23 Pre-op Diagnosis right foot hallux valgus, 2nd crossover toe Post-op Diagnosis Same Procedure Performed Right hallux valgus correction with double osteotomy, 2nd crossover toe reconstruction with metatarsal osteotomy. Surgeon Lj Barrios MD Exploration Manager 1St trust manager assistant Anesthesia General Indications 57-year-old with worsening deformity of the right hallux and 2nd toe. Difficulty with shoe wear and activity. Presents for operative treatment. Findings Mild degenerative changes hallux metatarsophalangeal joint. Severe degenerative changes 2nd metatarsophalangeal joint. Description of Procedure After informed consent was given, the operative extremity was marked in the preoperative holding area. The patient received intravenous antibiotics. The patient was brought to the operating room where they underwent a general anesthetic by the anesthesia team. The patient was positioned supine on the operating room table. A time-out was performed confirming the patient, site of the surgery, and the plan for surgery. The right lower extremity was then prepped and draped in the usual sterile surgical fashion using ChloraPrep skin solution. Foot and ankle were exsanguinated and a calf tourniquet was inflated to 225 mmHg pressure. A longitudinal incision was then made along the medial border of the 1st ray centered over the medial eminence with a #15 blade knife. The previous incision was utilized. Hemostasis was controlled with electric cautery. The dorsal and plantar sensory nerves were identified and retracted bluntly. A medial capsulotomy was then performed. This was reflected off the medial eminence. The joint was inspected for evaluation of degenerative changes. A lateral release was then performed through the joint with a #15 blade knife. The medial eminence was then resected with a sagittal saw in line with the medial border of the foot. Correction of the deformity was performed with a chevron-shaped osteotomy performed with sagittal saw from medial to lateral through the distal portion of the 1st metatarsal. The lateral portion of the bone cut was completed with an osteotome to protect the soft tissue. The capital fragment was then translated laterally and impacted on to the 1st metatarsal shaft. Lateral translation and impaction corrected both hallux valgus deformity and correction of the distal metatarsal articular angle. Temporary fixation was performed and alignment was verified with image intensification. Hallux valgus angle correction, intermetatarsal angle correction and distal metatarsal articular angle were verified. Fixation was achieved with 2.0 millimeter bioabsorbable pins. Two pins were utilized. Image intensification confirmed final alignment. Rotation was verified visually. The wound was then thoroughly irrigated with antibiotic solution. The capsule was repaired through a drill hole in the distal 1st metatarsal with 0 Vicryl interrupted suture. The dorsal limb of the capsule was repaired with 00 Vicryl interrupted suture. Subcutaneous tissue was repaired with 000 Monocryl interrupted suture and the skin approximated with 0000 nylon running suture. Local anesthetic with 0.5% Marcaine plain was injected in the soft tissue. Clinically and fluoroscopically there was still hallux valgus interphalangeus present. Proximal phalanx osteotomy was indicated. Medial incision made along the proximal phalanx with 15 blade knife. Hemostasis controlled electrocautery. Dissection down to the medial aspect of the proximal phalanx. Retractors placed. Sagittal saw used to make a medial closing wedge osteotomy transversely across the proximal phalanx. Image intensification confirmed placement of the osteotomy. Fixation was achieved with the Arthrex 10 millimeter x 9 millimeter staple. Good stability and fixation were noted. Image intensification confirmed final alignment of the osteotomy and placeme
[2023-03-16] MEDS: oxyCODONE HCL (*CRX) 5 MG TAB IR PO (10:19)
== END 2023-03-16 11:10 | disposition home or self-care (01) ==
PROVIDERS: PCP Nurse Practitioner; Visit Provider Orthopaedic Surgery
PROC: (CPT 28299; principal; 2023-03-16 07:30)
PROC: (CPT 28750; 2023-03-16 07:30)
PROC: (CPT 28299; 2023-03-16 07:30)
DX: M20.11 Hallux valgus (acquired), right foot (principal); M20.5X1 Other deformities of toe(s) (acquired), right foot; M19.071 Primary osteoarthritis, right ankle and foot; I10 Essential (primary) hypertension; E78.5 Hyperlipidemia, unspecified; G47.33 Obstructive sleep apnea (adult) (pediatric); F41.9 Anxiety disorder, unspecified; Z98.84 Bariatric surgery status; E66.01 Morbid (severe) obesity due to excess calories; Z68.41 Body mass index [BMI] 40.0-44.9, adult
CPT/HCPCS: 28299; 28308; 99199; A9270; C1713; J0690; J1100; J1170; J1885; J2250; J2405; J2704; J3010; J7120

== ENCOUNTER 2023-03-20 07:30 | Outpatient (CLI) | payer OTHER, SELFPAY ==
--- NOTE | ~2023-03-20 | XR_ITS ---
Right foot Technique: AP, oblique, and lateral views were obtained. Clinical History: 4 days postop COMPARISON: 12/13/2022 Findings: Patient is undergone interval osteotomy of the first proximal phalanx with orthopedic hardw are in place about the osteotomy site. There is also apparent healing osteotomy of the first metatars al. There is an orthopedic pin which appears to transfix the second digit phalanges and metatarsal, w ith 3 orthopedic screws at the second metatarsal head region. There is soft tissue swelling at the fo refoot. Impression: Postoperative changes of the first and second digits, as detailed above. Correlate with surgical hist ory. Reviewed, dictated and finalized at location M. Impression: Postoperative changes of the first and second digits, as detailed above. Correl ate with surgical history.
== END 2023-03-20 07:31 | disposition home or self-care (01) ==
LOC: CHSIMG 07:33
PROVIDERS: PCP Nurse Practitioner; Visit Provider Orthopaedic Surgery
DX: Z47.89 Encounter for other orthopedic aftercare (principal); Z98.890 Other specified postprocedural states
CPT/HCPCS: 73630

== ENCOUNTER 2023-05-01 08:59 | Outpatient (CLI) | payer OTHER, SELFPAY ==
--- NOTE | ~2023-05-01 | XR_ITS ---
Right foot Technique: AP, oblique, and lateral views were obtained. Clinical History: Postoperative follow-up COMPARISON: 03/20/2023 Findings: Healing osteotomy of the first proximal phalanx is again present. Probable prior bunionecto my and/or possible osteotomy of the first metatarsal. Orthopedic pin involving the second digit is un changed, as are orthopedic screws at the second metatarsal head/neck. Underlying oblique fracture of the distal second metatarsal is unchanged in appearance. Soft tissues are unremarkable. Impression: Stable postoperative changes of the first and second digits, as above. Underlying fracture the second intertarsal present, unchanged. Probable prior bunionectomy and/or osteotomy of the first metatarsal. Prior osteotomy of the first pr oximal phalanx. Reviewed, dictated and finalized at location M. Impression: Stable postoperative changes of the first and second digits, as above. Underlyi ng fracture the second intertarsal present, unchanged. Probable prior bunionectomy and/or osteotomy of the first metatarsal. Prior ost eotomy of the first proximal phalanx.
== END 2023-05-01 09:00 | disposition home or self-care (01) ==
LOC: CHSLAB 09:02 → CHSIMG 09:04
PROVIDERS: PCP Nurse Practitioner; Visit Provider Orthopaedic Surgery
DX: Z47.89 Encounter for other orthopedic aftercare (principal); Z98.890 Other specified postprocedural states
CPT/HCPCS: 73630

== ENCOUNTER 2023-06-12 07:36 | Outpatient (CLI) | payer OTHER, SELFPAY ==
--- NOTE | ~2023-06-12 | XR_ITS ---
EXAMINATION: XR foot RT min 3V DATE: 06/12/2023 07:55 INDICATION: Right foot postop follow-up. TECHNIQUE: 4 views of right foot including weightbearing views were obtained. COMPARISON: Right foot radiographs 05/01/2023, 12/13/2022 FINDINGS: There are changes of bunionectomy. There is a staple in first proximal phalanx. There is an osteotomy of diaphysis of second metatarsal with screw fixation. There is mild osteoarthritis of fir st metatarsophalangeal joint and some of the interphalangeal joints and midfoot joints. There is heidy re osteoarthritis of second metatarsophalangeal joint. There are erosions at second metatarsophalange al joint. There is an enthesophyte at plantar aspect of calcaneal tuberosity. IMPRESSION: 1. Erosions at second metatarsophalangeal joint suspicious for osteomyelitis. 2. Polyarticular osteoarthritis. Reviewed, dictated and finalized at location A.
== END 2023-06-12 07:37 | disposition home or self-care (01) ==
LOC: CHSIMG 07:38
PROVIDERS: PCP Nurse Practitioner; Visit Provider Orthopaedic Surgery
DX: M79.671 Pain in right foot (principal); M19.071 Primary osteoarthritis, right ankle and foot
CPT/HCPCS: 73630

== ENCOUNTER 2023-07-11 07:53 | Outpatient (CLI) | payer OTHER, SELFPAY ==
--- NOTE | ~2023-07-11 | XR_ITS ---
Left Knee Technique: AP, lateral, and sunrise views were obtained. Clinical History: Knee replacement COMPARISON: 06/23/2022 Findings: No fracture or dislocation is seen. Total knee arthroplasty hardware is in place, without h ardware convocation. Stable probable loose bodies in a Baez's cyst.. No joint effusion is seen. Impression: No acute abnormality. Stable left knee arthroplasty. Stable probable loose bodies within a Baez's cyst. Reviewed, dictated and finalized at location M. ENTICE LINEMAN THIRD STEP Impression: No acute abnormality. Stable left knee arthroplasty. Stable probable loose bodies within a Baez's cyst.
--- NOTE | ~2023-07-11 | XR_ITS ---
Right Knee Technique: AP, lateral, and sunrise views were obtained. Clinical History: Knee replacement COMPARISON: 06/23/2022 Findings: No fracture or dislocation is seen. Total knee arthroplasty hardware is in place, without h ardware convocation. Soft tissues are unremarkable. No joint effusion is seen. Impression: No acute abnormality. Stable right knee arthroplasty. Reviewed, dictated and finalized at location M. TING CLERK Impression: No acute abnormality. Stable right knee arthroplasty.
== END 2023-07-11 07:54 | disposition home or self-care (01) ==
LOC: CHSIMG 07:55
PROVIDERS: PCP Nurse Practitioner; Visit Provider Orthopaedic Surgery
DX: M25.561 Pain in right knee (principal); M25.562 Pain in left knee; Z96.652 Presence of left artificial knee joint; M71.22 Synovial cyst of popliteal space [Baker], left knee; Z96.651 Presence of right artificial knee joint
CPT/HCPCS: 73562

== ENCOUNTER 2024-07-23 07:43 | Outpatient (CLI) | payer OTHER, SELFPAY ==
--- NOTE | ~2024-07-23 | XR_ITS ---
Right Knee Technique: AP, lateral, and sunrise views were obtained. Clinical History: Pain Findings: No fracture or dislocation is seen. Right knee arthroplasty unchanged. Soft tissues are unr emarkable. No joint effusion is seen. Impression: No acute abnormality. Stable right knee arthroplasty. Reviewed, dictated and finalized at location . POO ASSISTANT Impression: No acute abnormality. Stable right knee arthroplasty.
--- NOTE | ~2024-07-23 | XR_ITS ---
Left Knee Technique: AP, lateral, and sunrise views were obtained. Clinical History: Pain COMPARISON: 07/11/2023 Findings: No fracture or dislocation is seen. Stable left knee arthroplasty. Loose bodies in the post erior aspect of the joint are unchanged.. No joint effusion is seen. Impression: No acute abnormality. Stable left knee arthroplasty. Stable loose bodies at the posterior aspect of the joint, possibly within a Baez's cyst. Reviewed, dictated and finalized at location M. INSPECTOR Impression: No acute abnormality. Stable left knee arthroplasty. Stable loose bodies at the posterior aspect of the joint, possibly within a John er's cyst.
== END 2024-07-23 07:44 | disposition home or self-care (01) ==
LOC: CHSIMG 07:45
PROVIDERS: PCP Nurse Practitioner; Visit Provider Orthopaedic Surgery
DX: M25.562 Pain in left knee (principal); M25.561 Pain in right knee; Z96.652 Presence of left artificial knee joint; M23.42 Loose body in knee, left knee; Z96.651 Presence of right artificial knee joint
CPT/HCPCS: 73562